=== PATIENT | female | born 1985 | race Caucasian/White ===

== ENCOUNTER 2021-07-07 12:36 | Emergency (ER) | payer OTHER, SELFPAY ==
--- NOTE | ~2021-07-07 | XR_ITS ---
EXAMINATION: XR shoulder RT min 2V INDICATION: Right shoulder pain TECHNIQUE: Four views of the right shoulder are submitted. COMPARISON: None FINDINGS: Normal alignment. No fracture. Glenohumeral and acromioclavicular joint spaces are normal. Soft tissues are unremarkable. IMPRESSION: 1. No acute osseous abnormality. Reviewed, dictated and finalized at location B.
[2021-07-07 12:42] VITALS: BP 133/82; PULSE 83; RESP 16; TEMP 37.2; O2SAT 98
--- NOTE | 2021-07-07 12:54 | ED.UPPEXIN ---
HPI - Extremity Injury (Upper) General Chief Complaint: Extremity Injury, Upper Stated Complaint: right shoulder down arm pain Time Seen by Provider: 07/07/21 12:54 Source: patient History of Present Illness HPI narrative: patient presents with right shoulder pain. patient denies any pain or discomfort. denies any injury. woke up with shoulder pain. has not taken anything for pain or discomfort. complaint: injury to: right and shoulder Other Extremity Injury: Right: shoulder Related Data Home Medications Medication Instructions Recorded Confirmed simvastatin 40 mg PO DAILY 07/07/21 07/07/21 Allergies Allergy/AdvReac Type Severity Reaction Status Date / Time azithromycin Allergy Unknown Nausea and Verified 12/09/19 18:48 Vomiting Review of Systems Review of Systems: All systems reviewed & are unremarkable except as noted in HPI and below ENT: Comments: CONSTITUTIONAL: Denies fever, chills, or sweats. EYES: Denies visual changes, redness, or discharge. ENT: Denies rhinorrhea, congestion, sore throat, or otalgia. CARDIOVASCULAR: Denies chest pain, palpitations, or edema. RESPIRATORY: Denies cough or dyspnea. GASTROINTESTINAL: Denies abdominal pain, nausea, vomiting, or diarrhea. GENITOURINARY: Denies dysuria or hematuria. SKIN: Denies rash or itching. MUSCULOSKELETAL: Denies back pain, joint pain, or myalgia. NEUROLOGIC: Denies headache, numbness, or weakness. PSYCHIATRIC: Denies anxiety or depression. [facility] Social History Social History Gender identity (if verbalized by the patient): Female Comments At time of signature, agree with nursing past medical, surgical, social and family history. There is no relevant family history pertinent to the presenting complaint Exam Narrative: GENERAL: Well-appearing, well-nourished, and in no acute distress. HEAD: Normocephalic, atraumatic. EYES: PERRLA and EOMI. ENT: Nares clear, no rhinorrhea or epistaxis. Mucous membranes moist. NECK: Supple. CHEST: Clear to auscultation. No respiratory distress. HEART: Regular rate and rhythm. No murmur heard. Normal peripheral pulses. ABDOMEN: Soft, nontender, nondistended, normal active bowel sounds. EXTREMITIES: Normal range of motion. No edema.NO SWELLING, BRUISING, SKIN CHANGES. SKIN INTACT. NORMAL RADIAL PULSE. NO DEFORMITY OF SHOULDER. NO CLAVICLE TENDERNESS. NORMAL UE SENSATION AND STRENGTH. ROM EVALUATED - CAN RAISE UE ABOVE SHOULDER, CAN ABDUCT, ADDUCT, EXTERNALLY ROTATE AND CAN INTERNALLY ROTATE AND RAISE THUMB UP THE SPINE. NO AC JOINT TENDERNESS, CAN CROSS ARM HORIZONTALLY AND PLACE HAND ON OPPOSITE SHOULDER, NO WINGING OF THE SCAPULA. SUPRASPINATUS APPEARS NORMAL WITH ARMS STRAIGHT OUT AT 30 DEGREES, THUMB DOWN , CAN ABDUCT AGAINST RESISTANCE. SKIN: Warm, dry, no rash. NEURO: No focal deficits. Alert and oriented x3. [place] Coma Scale Eye Opening: Spontaneous 4 [place] Coma Scale Motor: Obeys Commands 6 [place] Coma Scale Verbal: Oriented 5 [place] Coma Scale Total 15 Course Vital Signs Vital signs: Vital Signs Temperature 37.2 C 07/07/21 12:42 Pulse Rate 83 07/07/21 12:42 Respiratory Rate 16 07/07/21 12:42 Blood Pressure 133/82 07/07/21 12:42 Pulse Oximetry 98 07/07/21 12:42 Temperature 37.2 C 07/07/21 12:42 Pulse Rate 83 07/07/21 12:42 Respiratory Rate 16 07/07/21 12:42 Blood Pressure 133/82 07/07/21 12:42 Pulse Oximetry 98 07/07/21 12:42 Addressed elevated BP today. Today's blood pressure higher than recommended range. Discussed importance of follow -up with PCP and possible alf effects/cardiovascular events related to HTN. Currently patient denies headache, dizziness, vision changes, CP or shortness of breath. Pain much improved after Toradol injection patient ready to go home. DISCUSSED WITH PATIENT, X-RAY FINDINGS AND THAT X-RAYS WERE NEGATIVE FOR FRACTURE OR DISLOCATIONS. X-RAYS CANNOT RULE OUT TE
[2021-07-07] MEDS: KETOROLAC (*BKC) 60 MG/2 ML VIAL IM (13:05)
== END 2021-07-07 13:35 | disposition home or self-care (01) ==
PROVIDERS: Emergency Provider Nurse Practitioner Family; PCP Internal Medicine
DX: S40.211A Abrasion of right shoulder, initial encounter (principal); S40.011A Contusion of right shoulder, initial encounter; X58.XXXA Exposure to other specified factors, initial encounter; E78.00 Pure hypercholesterolemia, unspecified; F41.9 Anxiety disorder, unspecified
CPT/HCPCS: 73030; 96372; 99213; G0463; J1885

== ENCOUNTER 2021-07-12 09:59 | Emergency (ER) | payer OTHER, SELFPAY ==
--- NOTE | ~2021-07-12 | XR_ITS ---
EXAMINATION: [id number]_[id number] DATE: 07/12/2021 11:52 INDICATION: Right arm pain. TECHNIQUE: 4 views of cervical spine were obtained. COMPARISON: None. FINDINGS: There is 7 degrees levocurvature of cervicothoracic spine. There is kyphosis of cervical sp ine. Vertebral body heights are normal. There is mildly decreased disc height at C5-C6. No uncoverteb ral joint or facet joint osteoarthritis. No central canal stenosis or prevertebral soft tissue swelli ng. IMPRESSION: 1. Mild cervical spondylosis. Reviewed, dictated and finalized at location B.
[2021-07-12 10:02] VITALS: BP 149/102; PULSE 78; RESP 20; TEMP 36.4; O2SAT 97
--- NOTE | 2021-07-12 11:16 | ED.GENADULT ---
HPI - General Adult General Chief complaint: Extremity Problem,Nontraumatic <Arlene Stephens PA-C - Last Filed: 07/12/21 12:59> Stated complaint: rt arm pain <FLORINA Wilcox Last Filed: 07/12/21 12:59> Time Seen by Provider: 07/12/21 10:36 <FLORINA Wilcox Last Filed: 07/12/21 12:59> Source: patient <FLORINA Wilcox Last Filed: 07/12/21 12:59> Mode of arrival: ambulatory <FLORINA Wilcox Last Filed: 07/12/21 12:59> Limitations: no limitations <FLORINA Wilcox Last Filed: 07/12/21 12:59> History of Present Illness HPI narrative: Patient is tearful due to pain here for evaluation of pain in her right arm. She states that this started little more than a week ago, she has pain from her shoulder to her fingers with numbness in her thumb. She was seen and treated with ibuprofen, Flexeril, Medrol Dosepak and a sling with no relief she has had an x-ray of her shoulder that showed no pathology. 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 She denies any trauma recent or remote to her arm or neck. <Arlene Stephens PA-C - Last Filed: 07/12/21 12:59> Onset (ago): day(s) <FLORINA Wilcox Last Filed: 07/12/21 12:59> Radiation: non-radiation <FLORINA Wilcox Last Filed: 07/12/21 12:59> Severity: severe <FLORINA Wilcox Last Filed: 07/12/21 12:59> Quality: stabbing <FLORINA Wilcox Last Filed: 07/12/21 12:59> Pain Consistency: constant <FLORINA Wilcox Last Filed: 07/12/21 12:59> Relieving factors: none <Arlene Stephens PA-C - Last Filed: 07/12/21 12:59> Exacerbating factors: movement <Arlene Stephens PA-C - Last Filed: 07/12/21 12:59> Associated symptoms: denies other symptoms <Arlene Stephens PA-C - Last Filed: 07/12/21 12:59> Related Data Home medications: Home Medications Medication Instructions Recorded Confirmed simvastatin 40 mg PO DAILY 07/07/21 07/07/21 cyclobenzaprine mg 07/12/21 fluoxetine mg 07/12/21 hydrocodone-acetaminophen 07/12/21 <Arlene Stephens PA-C - Last Filed: 07/12/21 12:59> Allergies/adverse reactions: Allergies Allergy/AdvReac Type Severity Reaction Status Date / Time azithromycin Allergy Unknown Nausea and Verified 07/12/21 11:16 Vomiting <Arlene Stephens PA-C - Last Filed: 07/12/21 12:59> Review of Systems Review of Systems: All systems reviewed & are unremarkable except as noted in HPI and below <Arlene Stephens PA-C - Last Filed: 07/12/21 12:59> [facility] Social History Social History: Social History (Updated 07/12/21 @ 11:30 by Arlene Stephens PA-C) Smoking status: Never smoker Alcohol intake: never Substance use: never Occupation/Education: occupation 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[employer] Gender identity (if verbalized by the patient): Female <Arlene Stephens PA-C - Last Filed: 07/12/21 12:59> Exam Const: General: alert <Arlene Stephens PA-C - Last Filed: 07/12/21 12:59> Nutritional Appearance: obese <Arlene Stephens PA-C - Last Filed: 07/12/21 12:59> Orientation/consciousness: patient oriented x3 <Arlene Stephens PA-C - Last Filed: 07/12/21 12:59> Other: tearful <Arlene Stephens PA-C - Last Filed: 07/12/21 12:59> HENMT: Head: normal to inspection <Arlene Stephens PA-C - Last Filed: 07/12/21 12:59> Eyes: Pupils: Equal, round and reactive pupils present <Arlene Stephens PA-C - Last Filed: 07/12/21 12:59> Resp: Effort & Inspection: normal respiratory effort <FLORINA Wilcox Last Filed: 07/12/21 12:59> Auscultation: clear to auscultation bilaterally <Arlene Stephens PA-C - Last Filed: 07/12/21 12:59> Cardio: Rate: regular rate <FLORINA Wilcox Last Filed: 07/12/21 12:59> Rhythm: regular rhythm <FLORINA Wilcox Last Filed: 07/12/21 12:59> Skin: General skin exam: normal col
[2021-07-12] MEDS: traMADol HCL (*CRX) 50 MG TABLET PO (11:35)
[2021-07-12 13:07] VITALS: BP 138/84; PULSE 72; RESP 18; TEMP 36.8; O2SAT 100
== END 2021-07-12 13:05 | disposition home or self-care (01) ==
PROVIDERS: Emergency Provider General Practice; PCP Internal Medicine
DX: G56.01 Carpal tunnel syndrome, right upper limb (principal); M47.812 Spondylosis without myelopathy or radiculopathy, cervical region
CPT/HCPCS: 72040; 99283; A9270

== ENCOUNTER 2022-06-26 19:03 | Emergency (ER) | payer OTHER, SELFPAY ==
[2022-06-26 19:18] VITALS: BP 136/76; PULSE 89; RESP 16; TEMP 36.4; O2SAT 100
--- NOTE | 2022-06-26 19:29 | ED.GENADULT ---
HPI - General Adult General Chief complaint: Extremity Injury, Lower Stated complaint: Right hand injury Source: patient Mode of arrival: ambulatory Limitations: no limitations History of Present Illness HPI narrative: Patient presents for evaluation of pain in her right hand and wrist for the last week. She cannot identify any precipitating cause or injury. She is right-hand dominant. Pain is constant, without descriptive quality. She rates pain 8 out of 10 in severity. She has a history of carpal tunnel surgery in the past. She has a wrist splint that she has worn intermittently at home. She previously was taking meloxicam for neck pain but has not taken it in multiple days. She has also taken tramadol in the past. She is not taking any medication to assist with her symptoms at this time. Pain is worse with movement. No paresthesias. No additional complaints or concerns Related Data Home Medications Medication Instructions Recorded Confirmed simvastatin 40 mg tablet 40 mg PO DAILY 07/07/21 06/26/22 fluoxetine 20 mg capsule 20 mg PO DAILY 07/12/21 hydrocodone 5 mg-acetaminophen 325 07/12/21 mg tablet Allergies Allergy/AdvReac Type Severity Reaction Status Date / Time azithromycin Allergy Unknown Nausea and Verified 06/26/22 19:13 Vomiting Review of Systems Review of Systems: CONSTITUTIONAL: Denies fever, chills, or sweats. EYES: Denies visual changes, redness, or discharge. ENT: Denies rhinorrhea, congestion, sore throat, or otalgia. CARDIOVASCULAR: Denies chest pain, palpitations, or edema. RESPIRATORY: Denies cough or dyspnea. GASTROINTESTINAL: Denies abdominal pain, nausea, vomiting, or diarrhea. GENITOURINARY: Denies dysuria or hematuria. SKIN: Denies rash or itching. MUSCULOSKELETAL: Reports pain in the right hand and wrist. NEUROLOGIC: Denies headache, numbness, dizziness, or weakness. PSYCHIATRIC: Denies anxiety or depression. 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 HEAD: Normocephalic, atraumatic. EYES: PERRLA and EOMI. ENT: Nares clear, no rhinorrhea or epistaxis. Mucous membranes moist. Oropharynx without tonsillar hypertrophy exudate or other lesions. Bilateral TMs pearly maria nonbulging NECK: Supple. No adenopathy or masses. No carotid bruits or JVD CHEST: Clear to auscultation. No respiratory distress. No wheezes rales or rhonchi HEART: Regular rate and rhythm. No murmur heard. Normal peripheral pulses. ABDOMEN: Soft, nontender, nondistended, normal active bowel sounds. EXTREMITIES: Normal range of motion however movement of the right wrist provokes pain No edema. There is mild tenderness to the right wrist without crepitus or deformity. 5 out of 5 handgrip strength bilaterally SKIN: Warm, dry, no rash. NEURO: No focal deficits. Alert and oriented x3. PSYCH: Normal mood and affect. Course Course Emergency Course: This is a 37-year-old female who presented for evaluation of pain in the right hand and wrist. She has no precipitating injury warranting imaging. We do not have x-ray audiovisual technician available here. Exam seems consistent with tendinitis. She
== END 2022-06-26 19:32 | disposition home or self-care (01) ==
PROVIDERS: Emergency Provider Nurse Practitioner
DX: M77.8 Other enthesopathies, not elsewhere classified (principal)
CPT/HCPCS: 99212; G0463

== ENCOUNTER 2023-03-05 17:53 | Emergency (ER) | payer OTHER, SELFPAY ==
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
[2023-03-05 18:04] VITALS: BP 131/66; PULSE 87; RESP 16; TEMP 36.5; O2SAT 99
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
== END 2023-03-05 19:08 | disposition home or self-care (01) ==
PROVIDERS: Emergency Provider Nurse Practitioner Family; PCP Internal Medicine
DX: S93.601A Unspecified sprain of right foot, initial encounter (principal); V86.09XA Driver of other special all-terrain or other off-road motor vehicle injured in traffic accident, initial encounter
CPT/HCPCS: 73630; 99213; G0463

== ENCOUNTER 2023-03-17 18:38 | Emergency (ER) | payer OTHER, SELFPAY ==
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
--- NOTE | 2023-03-17 18:45 | ED.UPPEXIN ---
HPI - Extremity Injury (Upper) General Chief Complaint: Extremity Injury, Upper Stated Complaint: WC right hand injury Time Seen by Provider: 03/17/23 18:46 Source: patient and RN notes reviewed History of Present Illness HPI narrative: Patient is a 37-year-old female who presents to urgent care with complaints of right hand swelling and pain. Patient states that she was trying to close a latch on a machine at work today, at [employer] and felt a pop in the right hand. Patient has been using ice and ibuprofen. States that happened around 9:00 a.m. this morning. No other acute complaints. Patient is right-hand dominant. No acute distress noted. Patient aware of the plan of care. Some parts of this dictation were generated by voice recognition software and may contain typographical and/or grammatical inaccuracies. Related Data Home Medications Medication Instructions Recorded Confirmed simvastatin 40 mg tablet 40 mg PO DAILY 07/07/21 06/26/22 fluoxetine 20 mg capsule 20 mg PO DAILY 07/12/21 ropinirole 1 mg tablet mg 03/05/23 tizanidine 4 mg tablet mg 03/05/23 Ozempic 03/17/23 Allergies Allergy/AdvReac Type Severity Reaction Status Date / Time azithromycin Allergy Unknown Nausea and Verified 06/26/22 19:13 Vomiting Review of Systems Review of Systems: CONSTITUTIONAL: Denies fever, chills, or sweats. EYES: Denies visual changes, redness, or discharge. ENT: Denies rhinorrhea, congestion, sore throat, or otalgia. CARDIOVASCULAR: Denies chest pain, palpitations, or edema. RESPIRATORY: Denies cough or dyspnea. GASTROINTESTINAL: Denies abdominal pain, nausea, vomiting, or diarrhea. GENITOURINARY: Denies dysuria or hematuria. SKIN: Denies rash or itching. MUSCULOSKELETAL: Reports of right hand pain and swelling NEUROLOGIC: Denies headache, numbness, or weakness. All other systems reviewed are negative, except as documented in HPI. 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 There is no relevant family history pertinent to the patient complaint. Exam Narrative: GENERAL: This is a well-nourished, well-developed patient, in no apparent distress. HEAD: normocephalic, atraumatic. EYES: PERRL. Sclera clear/white. Vision is grossly intact. EARS: External ears normal NOSE: External nose normal with no obvious nasal discharge, nares without redness, no rhinorrhea. THROAT: Mucous membranes moist, posterior pharynx clear. NECK: Neck supple, SKIN: warm, intact with no suspicious lesions or rash, good texture and turgor. NEURO: awake, alert, and oriented to person, place and time. There were no obvious focal neurologic abnormalities. EXTREMITIES: Mild edema noted to the dorsal aspect of the right hand with mild to moderate tenderness. No erythema or ecchymosis noted. Range of motion limited right upper extremity due to pain. Positive strong right radial pulse with capillary refill less than 2 seconds. Course Course Level of Care: Express Care Visit Vital Signs Vital signs: Vital Signs Temperature 97.6 F
[2023-03-17 18:46] VITALS: BP 151/94; PULSE 96; RESP 20; TEMP 36.4; O2SAT 99
== END 2023-03-17 19:16 | disposition home or self-care (01) ==
PROVIDERS: Emergency Provider Nurse Practitioner Family; PCP Internal Medicine
DX: M79.641 Pain in right hand (principal)
CPT/HCPCS: 73130; 99213; G0463

== ENCOUNTER 2023-07-12 16:47 | Emergency (ER) | payer OTHER, SELFPAY ==
[2023-07-12 16:50] VITALS: BP 114/70; PULSE 98; RESP 14; TEMP 36.9; O2SAT 98
[2023-07-12 17:03] VITALS: BP 114/70; PULSE 98; RESP 14; TEMP 36.9; O2SAT 98
--- NOTE | 2023-07-12 17:15 | ED.EAR ---
HPI - Ear Problem General Chief complaint: Ear Stated complaint: Right ear Time Seen by Provider: 07/12/23 17:14 Source: patient and RN notes reviewed Mode of arrival: ambulatory Limitations: no limitations History of Present Illness HPI Narrative: 38-year-old female presents concern for right ear pain and pressure. She reports symptoms started about 3 days ago. Reports she has also had nasal congestion and rhinorrhea. She denies sore throat, cough, fever, aches, chills, sweats. Denies drainage from the ear. She has not taken any medications for her symptoms MD Complaint: ear pain Related Data Home Medications Medication Instructions Recorded Confirmed simvastatin 40 mg tablet 40 mg PO DAILY 07/07/21 07/12/23 fluoxetine 20 mg capsule 20 mg PO DAILY 07/12/21 07/12/23 ropinirole 1 mg tablet 1 mg PO DIRECTED 03/05/23 07/12/23 tizanidine 4 mg tablet 4 mg PO DIRECTED 03/05/23 07/12/23 ascorbic acid (vitamin C) 500 mg 500 mg PO DAILY 07/12/23 07/12/23 capsule biotin 1,000 mcg chewable tablet 1,000 mcg PO DAILY 07/12/23 07/12/23 cholecalciferol (vitamin D3) 25 25 mcg PO DAILY 07/12/23 07/12/23 mcg (1,000 unit) capsule (Vitamin D3) dulaglutide 0.75 mg/0.5 mL 0.75 mg subcut WEEKLY 07/12/23 07/12/23 subcutaneous pen injector (Trulicity) vitamin B12 1,000 mcg-folic acid 1,000 tablet sublingual DAILY 07/12/23 07/12/23 400 mcg sublingual tablet Allergies Allergy/AdvReac Type Severity Reaction Status Date / Time azithromycin Allergy Unknown Nausea and Verified 07/12/23 17:00 Vomiting Review of Systems Review of Systems: CONSTITUTIONAL: Denies malaise, chills, sweats, or fever. EYES: Denies visual changes, redness, or discharge. ENT: Reports rhinorrhea, congestion. Denies sinus pain, and sore throat. Reports right ear pain CARDIOVASCULAR: Denies chest pain, palpitations, or edema. RESPIRATORY: Denies cough. Denies dyspnea. GASTROINTESTINAL: Denies abdominal pain, nausea, vomiting, diarrhea SKIN: Denies rash or itching. MUSCULOSKELETAL: Denies myalgia. NEUROLOGIC: Denies headache. 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 There is no relevant family history pertinent to the presenting complaint Exam Narrative: GENERAL: Well-appearing, well-nourished, and in no acute distress. HEAD: Normocephalic EYES: PERRLA, conjunctivae clear ENT: Nares clear, turbinates edematous, clear discharge. Mucous membranes moist. TM pearly amria with dull light reflex bilaterally; no tragal tenderness. Oropharynx not erythematous without lesions. Tonsils not enlarged and without exudate, no drooling, no hoarseness, no trismus, uvula midline. NECK: Supple. No lymphadenopathy CHEST: Clear to auscultation, breath sounds equal. No wheezing, rhonchi, rales, or stridor. No respiratory distress, speaks in full sentences. HEART: Regular rate and rhythm. No murmur heard. SKIN: Warm, dry, no rash. NEURO: Alert and oriented x3. PSYCH: Normal mood and affect Course Course Lisa
== END 2023-07-12 17:25 | disposition home or self-care (01) ==
PROVIDERS: Emergency Provider Nurse Practitioner; PCP Internal Medicine
DX: J06.9 Acute upper respiratory infection, unspecified (principal)
CPT/HCPCS: 99213; G0463

== ENCOUNTER 2024-01-05 08:26 | Emergency (ER) | payer OTHER, SELFPAY ==
[2024-01-05 08:41] VITALS: BP 121/74; PULSE 81; RESP 16; TEMP 36.2; O2SAT 98
--- NOTE | 2024-01-05 09:18 | ED.GENADULT ---
HPI - General Adult General Chief complaint: Upper Respiratory Infection Stated complaint: throat Source: patient Mode of arrival: ambulatory Limitations: no limitations History of Present Illness HPI narrative: Patient presents for evaluation of sore throat since yesterday. She has experience a mild productive cough of clear/white sputum and reports a hoarse voice. Denies shortness of breath, fever, chills, nausea, vomiting, diarrhea, shortness of breath. No recent sick contacts to her knowledge. She took ibuprofen for her symptoms. Related Data Home Medications Medication Instructions Recorded Confirmed simvastatin 40 mg tablet 40 mg PO DAILY 07/07/21 07/12/23 fluoxetine 20 mg capsule 20 mg PO DAILY 07/12/21 07/12/23 ropinirole 1 mg tablet 1 mg PO DIRECTED 03/05/23 07/12/23 ascorbic acid (vitamin C) 500 mg 500 mg PO DAILY 07/12/23 07/12/23 capsule biotin 1,000 mcg chewable tablet 1,000 mcg PO DAILY 07/12/23 07/12/23 cholecalciferol (vitamin D3) 25 25 mcg PO DAILY 07/12/23 07/12/23 mcg (1,000 unit) capsule (Vitamin D3) vitamin B12 1,000 mcg-folic acid 1,000 tablet sublingual DAILY 07/12/23 07/12/23 400 mcg sublingual tablet Allergies Allergy/AdvReac Type Severity Reaction Status Date / Time azithromycin Allergy Unknown Nausea and Verified 07/12/23 17:00 Vomiting Review of Systems Review of Systems: CONSTITUTIONAL: Denies fever, chills, or sweats. EYES: Denies visual changes, redness, or discharge. ENT: Reports hoarse voice and sore throat. Denies rhinorrhea, congestion, or otalgia. CARDIOVASCULAR: Denies chest pain, palpitations, or edema. RESPIRATORY: Reports occasional productive cough of clear/white sputum. Denies SOB GASTROINTESTINAL: Denies abdominal pain, nausea, vomiting, or diarrhea. GENITOURINARY: Denies dysuria or hematuria. SKIN: Denies rash or itching. MUSCULOSKELETAL: Denies back pain, joint pain, or myalgia. NEUROLOGIC: Denies headache, numbness, dizziness, or weakness. PSYCHIATRIC: Denies anxiety or depression. 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 HEAD: Normocephalic, atraumatic. EYES: PERRLA and EOMI. ENT: Nares clear, no rhinorrhea or epistaxis. Mucous membranes moist. Oropharynx without tonsillar hypertrophy exudate or other lesions. Bilateral TMs pearly maria nonbulging NECK: Supple. No adenopathy or masses. No carotid bruits or JVD CHEST: Clear to auscultation. No respiratory distress. No wheezes rales or rhonchi HEART: Regular rate and rhythm. No murmur heard. Normal peripheral pulses. ABDOMEN: Soft, nontender, nondistended, normal active bowel sounds. EXTREMITIES: Normal range of motion. No edema. SKIN: Warm, dry, no rash. NEURO: No focal deficits. Alert and oriented x3. PSYCH: Normal mood and affect. Course Course Emergency Course: This is a 38-year-old female who presented for evaluation of sore throat. Rapid strep negative. Exam is consistent with viral pharyngitis. Recommend Cepacol lozenges. Increase hydration. Follow up with primary provider. Go to the ER for worsening sympt
== END 2024-01-05 09:13 | disposition home or self-care (01) ==
PROVIDERS: Emergency Provider Nurse Practitioner; PCP Internal Medicine
DX: J02.9 Acute pharyngitis, unspecified (principal)
CPT/HCPCS: 87081; 87880; 99213; G0463

== ENCOUNTER 2025-02-26 08:07 | Outpatient (CLI) | payer OTHER, SELFPAY ==
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
--- OUTSIDE RECORDS SUMMARY | 2025-02-26 08:10 | XMS_ITS | Clinical Summary ---
Author Organization [facility] Address [address] [place] [address] Phone Care Team Providers Care Staff Antisubmarine Officer Name Role Phone RODRIGO YANG, JAN Hughes Unavailable [phone] RAY YANG, CHELSEA Mccloud Unavailable [phone] Reason for Visit and Chief Complaint The Chief Complaint is: WWE. Vaginal itching for a couple weeks.. No new sexual partners Problems Includes: Problems addressed during this encounter and other active Problems Current Visit Onset Date Resolved Date Provider Janayo n Status Hyperlipidemia 03/09/2019 ARGENIS DIALLO MAN [facility] Active Last Documented On 9 8:02AM ; [facility] Reported Previous Std 09/10/2013 Unknown ELISE JANE MD Resolved Last Documented On 05/17/2014 10:24AM ; [facility] Note: was Closed. Plan of Treatment - Clinical summary provided to patient - Last Documented On 05/21/2023 3:22PM ; [facility] Instructions to patient Instructions for patient : B reast Self Exam discussed Last Documented On 3 2:27PM ; [facility] Instructions for patient : K eep the area around the vulva dry. Allow the area to have exposure to air. Avoid irritants such as fabric softeners and perfumed soaps.~ Last Documented On 3 3:22PM ; [facility] Lose weight Last Documented On 3 2:28PM ; [facility] Advised d/c scented bath pro ducts Last Documented On 3 3:22PM ; [facility] Safe sex counseling Last Documented On 3 2:28PM ; [facility] Education and Decision Aids were provided during visit for: Patient Education: Daily piedad cium and vitamin D Last Documented On 3 2:27PM ; [facility] Patient Education: weight be aring exercise Last Documented On 3 2:27PM ; [facility] Candidiasis Vulvovaginitis I nformation Sheet Given Last Documented On 3 3:22PM ; [facility] Assessments Includes: Assessments from this encounter Findings - NORMAL FEMALE EXAM [Z01.419 - Encounter for gynecological examination (general) (routine) without abnormal findings] - Last Documented On 05/21/2023 3:22PM ; [facility] - Hyperlipidemia [E78.2 - Mixed hyperlipidemia] - Last Documented On 05/21/2023 3:22PM ; [facility] Instructions Includes: Instructions from this encounter Instructions to patient Instructions for patient : B reast Self Exam discussed Last Documented On 3 2:27PM ; [facility] Instructions for patient : K eep the area around the vulva dry. Allow the area to have exposure to air. Avoid irritants such as fabric softeners and perfumed soaps.~ Last Documented On 3 3:22PM ; [facility] Lose weight Last Documented On 3 2:28PM ; [facility] Advised d/c scented bath pro ducts Last Documented On 3 3:22PM ; [facility] Safe sex counseling Last Documented On 3 2:28PM ; [facility] Education and Decision Aids were provided during visit for: Patient Education: Daily piedad cium and vitamin D Last Documented On 3 2:27PM ; [facility] Patient Education: weight be aring exercise Last Documented On 3 2:27PM ; [facility] Candidiasis Vulvovaginitis I nformation Sheet Given Last Documented On 3 3:22PM ; [facility] Medical Equipment - Implanted Devices Includes: Current Devices No Medical Equipment Recorded Medications Includes: Medications discussed during this encounter and other current Medications Discontinued / Stopped on this date on 03/09/2019 FLUoxetine HCl 20MG Oral Capsule, conventional Provider: Diagnosis: Last Documented On 05/21/2023 3:06PM By Marie GONZALEZ ; [facility] New / Renewed during this visit ARGENIS MCCORMICK on 05/21/2023 Diflucan 150 MG Oral Tablet Provider: ARGENIS Hughes 30 day supply: 2 tablet, 0 refills Diagnosis: as directed - one po x 1 dos e and may rpt. in 3 days if needed Pharmacy: [address], [address] - Last Documented On 3:37PM By ARGENIS MCCORMICK ; [facility] Current Medications (continue as prescribed) Vitamin B12 500 MCG Oral Tablet 05/21/2023 Provider: Diagnosis: Last Documented On 05/21/2023 3:07PM By Marie GONZALEZ ; [facility] Biotin 10 MG Oral Capsule 05/21/2023 Provider: Diagnosis: Last Documented On 05/21/2023 3:07PM By Marie GONZALEZ ; [facility] QC Vitamin D3 25 MCG (1000 UT) Oral Capsule 05/21/2023 Provider: Diagnosis: Last Documented On 05/21/2023 3:06PM By Marie GONZALEZ ; [facility] tiZANidine HCl 4 MG Oral Tablet 05/03/2023 Provider: REGGIE WHITTAKER Diagnosis: Last Documented On 05/21/2023 3:05PM By Marie GONZALEZ ; [facility] rOPINIRole HCl 1 MG Oral Tablet 04/09/2023 Provider: Diagnosis: Last Documented On 05/21/2023 3:05PM By Marie GONZALEZ ; [facility] FLUoxetine HCl 20 MG Oral Capsule 02/12/2023 Provide r: REGGIE WHITTAKER Diagnosis: Last Documented On 05/21/2023 3:05PM By Marie GONZALEZ ; [facility] Mirena (52 MG) 20 MCG/24HR Intrauterine Intraute rine device 01/18/2020 Provider: Diagnosis: Last Documented On 12:58PM By ARGENIS MCCORMICK ; [facility] Simvastatin 20MG Oral Tablet 03/09/2019 Provider: Diagnosis: Last Documented On 03/09/2019 8:09AM By SHAKEEL GONZALEZ ; [facility] Past Medications on file CeleXA 20 MG OR TABS 09/15/2013 - 10/15/2013 Provider: Diagnosis: [facility] Last Documented On 09/15/2013 11:04AM By WESLEY SORENSEN ; [facility] Diflucan 150 MG OR TABS 07/03/2013 - 08/02/2013 Provider: ARGENIS MCCORMICK Diagnosis: CANDIDAL VULVOVA GINITIS take one dose po x 1 and repeat in 3 days Last Documented On 3 1:11PM By ARGENIS MCCORMICK ; [facility] 19 OR TABS 03/05/2013 - 02/28/2014 Provider: ARGENIS MCCORMICK Diagnosis: Last Documented On 3 9:09AM By ARGENIS MCCORMICK ; [facility] Zithromax 1 GM OR PACK 08/28/2012 - 09/27/2012 Provide r: ARGENIS MCCORMICK Diagnosis: 1 gm dose po x 1 - no liquid dosing please! Last Documented On 2 2:31PM By ARGENIS MCCORMICK ; [facility] Flagyl 500 MG OR TABS 08/28/2012 - 09/04/2012 Provider : ARGENIS MCCORMICK Diagnosis: Last Documented On 2 2:30PM By ARGENIS MCCORMICK ; [facility] Bactrim DS 800-160 MG OR TABS 03/27/2012 - 04/03/2012 Provider: ARGENIS MCCORMICK Diagnosis: Last Documented On 2 2:14PM By ARGENIS MCCORMICK ; [facility] Ibuprofen 800 MG OR TABS 07/23/2011 - 09/21/2011 Provi ankita: ARGENIS MCCORMICK Diagnosis: Last Documented On 1 1:05PM By ARGENIS MCCORMICK ; [facility] GNP Vitamins OR TABS 12/14/2009 - 12/09/2010 Provider: ARGENIS MCCORMICK Diagnosis: Last Documented On 0 2:25PM By ARGENIS HOWARD ; [facility] CitraNatal 90 DHA 90-1 & 250 MG OR MISC 12/12/2009 - 12/07/2010 Provider: ARGENIS BERRIOS NP-BC Diagnosis: Last Documented On 0 2:12PM By ARGENIS DIALLO LAURIE-BC ; [facility] Medications Administered Includes: Administered Medications from this encounter No Administered Medications Recorded Vital Signs Includes: Vital Signs from this encounter Vital Name 05/21/2023 03:09P Blood Pressure Sitting L 118/80 BP Cuff Size Large Temp-Temporal 98.3 Height (in) 65 Weight (lb) 261 Body Mass Index 43.4 Body Surface Area 2.2 Last Documented: On 05/21/2023 3:10PM ; [facility] Results Includes: Results discussed during this encounter No Results Recorded For Specified Dates History of Present Illness Includes: History of Present Illness from this encounter YAYA FONG is a 38 year old female. - Allergy list reviewed - Medication list reviewed - Primary Care Provider: Dr. Xiao - Age at menarche 13 - Date of last menstruation N/a - Abnormal menstrual flow heavy flow heavy menstrual flow - Menstrual symptoms Mild menstrual cramping Social History Description Last Updated Alcohol use occ 05/21/2023 Last Documented On 3 3:22PM ; [facility] Tobacco non-user 05/21/2023 Last Documented On 3 3:22PM ; [facility] control is being practiced Mirena 05/21/2023 Last Documented On 3 3:22PM ; [facility] Alcohol 05/21/2023 Last Documented On 3 3:22PM ; [facility] Amount of alcohol per day: Once while Last Documented On 3 3:22PM ; [facility] Does not have anal sex 05/21/2023 Last Documented On 3 3:22PM ; [facility] Has not used injectable drugs 05/21/2023 Last Documented On 3 3:22PM ; [facility] Has sex with males only 05/21/2023 Last Documented On 3 3:22PM ; [facility] Never a smoker 05/21/2023 Last Documented On 3 3:22PM ; [facility] No drug use by a sexual partner 05/21/20 Last Documented On 3 3:22PM ; [facility] No sexual history reported 05/21/2023 Last Documented On 3 3:22PM ; [facility] Not using drugs 05/21/2023 Last Documented On 3 2:27PM ; [facility] Not using drugs 05/21/2023 Last Documented On 3 3:22PM ; [facility] Partner has not had a STD in the past ye ar 05/21/2023 Last Documented On 3 3:22PM ; [facility] Patient does not report having sex when she didn't want to 05/21/2023 Last Documented On 3 3:22PM ; [facility] Patient has not had sex unde r the influence of alcohol or drugs in the last year 05/21/2023 Last Documented On 3 3:22PM ; [facility] Sexual partner has not had o ther partners while in relationship with patient 05/21/2023 Last Documented On 3 3:22PM ; [facility] Sexual partner has not had sex with pros titutes 05/21/2023 Last Documented On 3 3:22PM ; [facility] Sexually active with partners in the las t year 05/21/2023 Last Documented On 3 3:22PM ; [facility] Non-smoker 03/17/2020 Last Documented On 3 2:27PM ; [facility] Smoking Status Unknown Procedures and Surgical History Includes: Procedures from this encounter Procedures Code Diagnosis Performing Provider Service L ocation Service Date low fat diet Last Documented On 3 2:28PM ; [facility] tubal ligation 92840 Last Documented On 3 2:56PM ; [facility] use of tobacco assessment performed 1000F Last Documented On 3 2:57PM ; [facility] review of medications documented 1160F Last Documented On 3 2:57PM ; [facility] history of cervical Pap smear 03/17/2020 [id number] Last Documented On 3 2:57PM ; [facility] Cervical Pap Smear performed Q0091 Last Documented On 3 2:28PM ; [facility] Surgical History Last Updated Surgical / procedural histor y 06-09-10 and 2013 ~Right Carpal Tunnel- 12/11/21 05/21/2023 Last Documented On 3 3:22PM ; [facility] History of tubal ligation 02/15/2015 Last Documented On 3 2:27PM ; [facility] Medical History Includes: Medical History addressed during this encounter Description Last Updated LMP: IUD 05/21/2023 Last Documented On 3 3:22PM ; [facility] Last pap smear date 03/17/2020 05/21/2023 Last Documented On 3 3:22PM ; [facility] # 1 Delivery date: 06/09/2010 05/21/2023 Last Documented On 3 3:22PM ; [facility] # 1 Hours in labor 13 05/21/2023 Last Documented On 3 3:22PM ; [facility] # 1 type delivery: C-sec 05/21/2023 Last Documented On 3 3:22PM ; [facility] # 1 Weeks: 2 weeks early 05/21/2023 Last Documented On 3 3:22PM ; [facility] # 1 Weight 8pd 10oz 05/21/2023 Last Documented On 3 3:22PM ; [facility] # 2 type delivery: Plan c-sec 05/21/2023 Last Documented On 3 3:22PM ; [facility] # 2 Delivery date: 03/11/2014 05/21/2023 Last Documented On 3 3:22PM ; [facility] # 2 Hours in labor: Plan c-sec 3 Last Documented On 3 3:22PM ; [facility] # 2 Weeks: 1 05/21/2023 Last Documented On 3 3:22PM ; [facility] # 2 Weight: 8pds 11oz 05/21/2023 Last Documented On 3 3:22PM ; [facility] An HIV test was not performed 05/21/2023 Last Documented On 3 3:22PM ; [facility] Diabetes 05/21/2023 Last Documented On 3 3:22PM ; [facility] Elective (s) 0 05/21/2023 Last Documented On 3 3:22PM ; [facility] No. of miscarriages: 0 05/21/2023 Last Documented On 3 3:22PM ; [facility] No. of Pregnancies: 2 05/21/2023 Last Documented On 3 3:22PM ; [facility] Previous live (s) 2 05/21/2023 Last Documented On 3 3:22PM ; [facility] Previous premature delivery(s) 0 023 Last Documented On 3 3:22PM ; [facility] Previous STD 05/21/2023 Last Documented On 3 3:22PM ; [facility] Sex of Child # 1: Fema 05/21/2023 Last Documented On 3 3:22PM ; [facility] Sex of Child # 2: Fem 05/21/2023 Last Documented On 3 3:22PM ; [facility] Sexually active 03/17/2020 Last Documented On 3 2:27PM ; [facility] Contraception: mirena 2-24-20 03/17/2020 Last Documented On 3 2:27PM ; [facility] History of hyperlipidemia 03/09/2019 Last Documented On 3 2:27PM ; [facility] 2 02/15/2015 Last Documented On 3 2:27PM ; [facility] Para 2 02/15/2015 Last Documented On 3 2:27PM ; [facility] Family History Includes: Family History addressed during this encounter Description Last Updated Maternal history of colon cancer Aunt Last Documented On 3 3:22PM ; [facility] Maternal history of diabetes mellitus Mo ther, Grandma, and Aunts 05/21/2023 Last Documented On 3 3:22PM ; [facility] Maternal history of psychiatric disorder s 05/21/2023 Last Documented On 3 3:22PM ; [facility] Paternal history of cancer Father- Liver cancer 05/21/2023 Last Documented On 3 3:22PM ; [facility] Family history of diabetes mellitus mate rnal grandma 02/15/2015 Last Documented On 3 2:27PM ; [facility] Family history [use for free text] 04/09 Last Documented On 3 2:27PM ; [facility] Family history of heart disease father 0 12/31/2012 Last Documented On 3 2:27PM ; [facility] Family history of hypertension fathers s [place] 12/31/2012 Last Documented On 3 2:27PM ; [facility] Family history of malignant neoplasm of the large intestine MAT AUNT 08/28/2012 Last Documented On 3 2:27PM ; [facility] Review of Systems Includes: Review of Systems from this encounter Gastrointestinal: No pelvic pain. Genitourinary: No menorrhagia. No dysmenorrhea and no bleeding between periods. No vaginal discharge. Mental Status Includes: Mental Status from this encounter No Mental Status Recorded Functional Status Includes: Functional Status from this encounter No Functional Status Recorded Physical Exam Includes: Physical Exam from this encounter Allergies Includes: Active Allergies Substance Type Reaction Onset Date Resolved Date Statu s Azithromycin Dihydrate Allergy 09/15/2012 Active Last Documented On 3 3:08PM ; [facility] Encounters Encounter Provider Location Date Check-In Time Check-Out Time Diagnosis WELL WOMAN - NEW PATIENT ARGENIS DIALLO MAN [facility] 05/21/20 23 2:54PM 3:23PM Normal Female Exam,Hyperlip idemia Insurance Includes: Active Insurance Policies Plan Name Member ID Group # Subscriber Relationship Effect shabbir Dates 1 - [facility] [id number] LILIAN FONG Self Clinical Notes Includes: Clinical Notes from this encounter * Progress note Date Encounter Last Documented by 05/21/2023 WELL WOMAN - NEW PATIENT Last do cumented on 05/21/2023; 3:22 PM, ARGENIS DIALLO LAURIE-; [facility] Active Problems & Conditions - Hyperlipidemia Chief Complaint The Chief Complaint is: WWE. Vaginal itching for a couple weeks.. No new sexual partners. History of Present Illness LILIAN FONG is a 38 year old female. - Allergy list reviewed - Medication list reviewed - Primary Care Provider: Dr. Xiao - Age at menarche 13 - Date of last menstruation N/a - Abnormal menstrual flow heavy flow heavy menstrual flow - Menstrual symptoms Mild menstrual cramping Current Medication - Biotin 10 MG Oral Capsule 0 days, 0 refills - FLUoxetine HCl 20 MG Oral Capsule 30 days, 0 refills - Mirena (52 MG) 20 MCG/24HR Intrauterine Intrauterine device 0 days, 0 refills - QC Vitamin D3 25 MCG (1000 UT) Oral Capsule 0 days, 0 refills - rOPINIRole HCl 1 MG Oral Tablet 90 days, 0 refills - Simvastatin 20MG Oral Tablet 20 MG 0 days, 0 refills - tiZANidine HCl 4 MG Oral Tablet 30 days, 0 refills - Vitamin B12 500 MCG Oral Tablet 0 days, 0 refills Past Medical/Surgical History Reported: LMP: IUD, Last pap smear date 03/17/2020, and Contraception: mirena 2-24-20. Medical: Previous STD and Diabetes. Surgical / Procedural: Surgical / procedural history 06-09-10 and 2013 Right Carpal Tunnel- 12/11/21. Tests: An HIV test was not performed. : 2, para 2 including premature delivery(s) 0, having live (s) 2, aborta including elective (s) 0, No. of Pregnancies: 2, # 1 Delivery date: 06/09/2010, # 2 Delivery date: 03/11/2014, # 1 type delivery: C-sec, # 2 type delivery: Plan c-sec, # 1 Hours in labor 13, # 2 Hours in labor: Plan c-sec, No. of miscarriages: 0, # 1 Weight 8pd 10oz, # 2 Weight: 8pds 11oz, # 1 Weeks: 2 weeks early, # 2 Weeks: 1, Sex of Child # 1: Fema, and Sex of Child # 2: Fem. Sexual: Sexually active. Diagnoses: Hyperlipidemia Surgical: - Tubal ligation Social History Behavioral: Amount of alcohol per day: Once while. Tobacco use: Never used tobacco never a smoker and non-smoker. Alcohol: Alcohol alcohol use occ. Drug Use: Not using drugs, not using drugs, no drug use by a sexual partner, and has not used injectable drugs. Sexual: Sexually active with partners in the last year and has sex with males only. Partner has not had a STD in the past year, sexual partner has not had other partners while in relationship with patient, and sexual partner has not had sex with prostitutes. Patient has not had sex under the influence of alcohol or drugs in the last year, patient does not report having sex when she didn't want to, and no sexual history reported. Does not have anal sex and control is being practiced Mirena. Allergies - Azithromycin Dihydrate Family History Heart disease father family history [use for free text] Systemic hypertension fathers side Diabetes mellitus maternal grandma Malignant neoplasm of large intestine MAT AUNT Paternal: Cancer Father- Liver cancer Maternal: Diabetes mellitus Mother, Grandma, and Aunts Psychiatric disorders Colon cancer Aunt Review Of Systems Gastrointestinal: No pelvic pain. Genitourinary: No menorrhagia. No dysmenorrhea and no bleeding between periods. No vaginal discharge. Physical Findings - Vitals taken 05/21/2023 03:09 pm BP-Sitting L 118/80 mmHg BP Cuff Size Large Temp-Temporal 98.3 F Height 65 in Weight 261 lbs Body Mass Index 43.4 kg/m2 Body Surface Area 2.2 m2 Standard Measurements: - Patient was observed to be obese. General Appearance: - Well developed. - Well nourished. - In no acute distress. Neck: Thyroid: - Showed no abnormalities. Lymph Nodes: - Supraclavicular lymph nodes were not enlarged. - Axillary lymph nodes were not enlarged. Breasts: Right Breast: - Nipple was normal. - No abnormal secretion. - No mass was found. - No tenderness. Left Breast: - Nipple was normal. - No abnormal secretion. - No mass was found. - No tenderness. Lungs: - Clear to auscultation. Cardiovascular: Heart Rate And Rhythm: - Normal. Murmurs: - No murmurs were heard. Back: - No right costovertebral angle tenderness. - No left costovertebral angle tenderness. Abdomen: Palpation: - Abdominal non-tender. - No mass was palpated in the abdomen. Liver: - Not enlarged. Spleen: - Not enlarged. Urinary System: Bladder: - Normal. - Not distended. - Did not have a mass. - Incontinence was not demonstrated. Genitalia: External: - Genitalia showed no abnormalities. Pelvic: - No ovarian mass. Vagina: - A vaginal discharge was observed thick, yellow. - No cystocele was observed. - No rectocele was observed. Cervix: - Showed no lesion Mirena IUD strings easily viewed and palpable in place. - Did not demonstrate pain elicited by motion. Uterus: - Not enlarged. - Not tender. Uterine Adnexae: - Uterine adnexa was not tender. Rectovaginal: - Tissue was normal. Psychiatric: Appearance: - Grooming was normal. Tests Pathology: Cytology: Cervical Pap Smear performed. Assessment - NORMAL FEMALE EXAM [Z01.419 - Encounter for gynecological examination (general) (routine) without abnormal findings] - Hyperlipidemia [E78.2 - Mixed hyperlipidemia] Previous Tests Pathology: Cytology: Cervical Pap smear 03/17/2020. Therapy - Low fat diet. - Tubal ligation. Counseling/Education - Instructions for patient: Breast Self Exam discussed - Instructions for patient: Keep the area around the vulva dry. Allow the area to have exposure to air. Avoid irritants such as fabric softeners and perfumed soaps. - Advised d/c scented bath products - Safe sex counseling - Lose weight - Candidiasis Vulvovaginitis Information Sheet Given - Patient Education: Daily calcium and vitamin D - Patient Education: weight bearing exercise Plan StartCited - Encntr for therapist exam (general) (routine) w/o abn findings Lab: PAP SMEAR & HPV ([facility] # [id number]) EndCited StartCited - Other Follow-up 1 year/prn Diflucan 150 MG tablet as directed - one po x 1 dose and may rpt. in 3 days if needed, 30 days, 0 refills EndCited - Clinical summary provided to patient Practice Management Preventive medicine new patient evaluation adult 18-39 years; Use of tobacco assessment performed Review of medications documented. Care Team - CHELSEA BELL MD Health Reminders - Assess BMI satisfied 05/21/2023. - Assess Tobacco Use satisfied 05/21/2023.
--- OUTSIDE RECORDS SUMMARY | 2025-02-26 08:10 | XMS_ITS | Data Portability ---
Author Organization BRYNN FLORIDALMACecilia Orozco Address [address] [place] [address] Care Team Providers Care Capacitor Tester Name Role Phone GEOVANNY WHITTAKER Primary Care Provider [phone] Assessment No assessment recorded. Plan of Treatment Reminders Order Date Submit Date Provider Last Modified By Organization Details Last Modified Time Details Appointments None recorded . Lab lipid panel, serum 2023 024 [facility], [address] [place] [address], [id number], 5 08:26:17 CMP, serum or plasma 2023 024 [facility], [address] [place] [address], [address], 5 08:26:17 HbA1c (hemoglo bin A1c), blood 2023 024 [facility], [address] [place] [address], [address], 4 03:09:27 lipid panel, serum 2023 024 [facility], [address] [facility] [address], [address], 4 03:09:26 CMP, serum or plasma 2023 024 [facility], [address] [facility] [address], [address], 4 03:09:26 CBC 2023 024 [facility], [address] [facility] [address], [place], [address], 4 03:09:28 TSH, ultra-se nsitive, serum 2023 024 [facility], [address] [facility] [address], [place], [address], 4 03:09:28 Referral None recorded . Procedures None recorded . Surgeries None recorded . Imaging None recorded . Medication Orders Imitrex 50 mg tablet 2023 024 [facility], [address] [place] [address], [address], 4 10:42:01 Trulicit y 0.75 mg/0.5 mL subcutan eous pen injector 2023 024 [facility], [address] [place] [address], [address], 4 10:42:00 Ozempic 0.25 mg or 0.5 mg (2 mg/1.5 mL) subcutan eous pen injector 2023 024 [facility], [address] [place] [address], [address], 4 10:59:06 simvasta tin 40 mg tablet 2023 024 [facility], [address] [place] [address], [address], 4 10:20:39 Wellbutr in XL 150 mg 24 hr tablet, extended release 2022 023 [facility], [address] [place] [address], [address], 3 14:50:25 metformi n ER 500 mg tablet,e xtended release 24 hr 2022 024 [facility], [address] [place], [address], 4 10:23:34 fluoxeti ne 20 mg capsule 2022 023 [facility], [address] [place], [address], 3 10:23:30 Patient TargetsNo targets recorded. Patient Instructions Encounter Date Encounter Id Patient Instructions Last Modified By Organization Details Last Modified Time 09/05/2023 [id number] A healthy lifestyle: care instructions nsuthan Not available 09/05/2023 10:22:20 f/u in 2month nsuthan Not available 10:23:00 03/31/2024 [id number] A healthy lifestyle: care instructions nsuthan Not available 03/31/2024 10:20:30 f/u in 3 month nsuthan Not available 0 03/31/2024 10:20:42 07/02/2024 [id number] f/u in 3month nsuthan Not available 0 07/02/2024 10:30:04 Reason for Referral None Reported. Results Created Date Observation Date Name Description Value Unit Range Abnormal Flag Note LastModifiedBy Organization Detail LastModifiedTime 07/02/20 24 07/03/2024 LIPID PANEL cholesterol, total 275 mg/dL 100-19 9 above high normal Not Available [facility] ([facility]) [address] [facility], [place], [address], 07/03/2024 03:09:26 07/02/20 24 07/03/2024 LIPID PANEL triglyceride s 144 mg/dL 0-149 Not Available [facility] ([facility]) [address] [facility], [place], [address], 07/03/2024 03:09:26 07/02/20 24 07/03/2024 LIPID PANEL HDL cholesterol 43 mg/dL >39 Not Available [facility] ([facility]) [address] [facility] [place], [address], 07/03/2024 03:09:26 07/02/20 24 07/03/2024 LIPID PANEL VLDL cholesterol piedad 27 mg/dL 5-40 Not Available [facility] ([facility]) [address] [facility] [place], [address], 07/03/2024 03:09:26 07/02/20 24 07/03/2024 LIPID PANEL LDL chol calc ([facility]) 205 mg/dL 0-99 above high normal Not Available [facility] ([facility]) [address] [facility] [place], [address], 07/03/2024 03:09:26 07/02/20 24 07/03/2024 LIPID PANEL LDL calc comment: COMMEN T Consi ankita evalu ating for Famil ial Hyper dana stero lemia (FH), if clini moncho indic ated. Not Available [facility] ([facility]) [address] [facility], [place], [address], 07/03/2024 03:09:26 07/02/20 24 07/03/2024 COMP. METAB OLIC PANEL (14) glucose 122 mg/dL 70-99 above high normal Not Available [facility] ([facility]) [address] [facility] [place], [address], 07/03/2024 03:09:26 07/02/20 24 07/03/2024 COMP. METAB OLIC PANEL (14) BUN 11 mg/dL 6-20 Not Available [facility] ([facility]) [address] [facility] [place], [address], 07/03/2024 03:09:26 07/02/20 24 07/03/2024 COMP. METAB OLIC PANEL (14) creatinine 0.74 mg/dL 0.57-1 .00 Not Available [facility] ([facility]) [address] [place], [address], 07/03/2024 03:09:26 07/02/20 24 07/03/2024 COMP. METAB OLIC PANEL (14) eGFR 107 mL/mi n/1.7 3 >59 Not Available [facility] ([facility]) [address] [facility], [place], [address], 07/03/2024 03:09:26 07/02/20 24 07/03/2024 COMP. METAB OLIC PANEL (14) BUN/creatini ne ratio 15 9-23 Not Available [facility] ([facility]) [address] [facility], [place], [address], 07/03/2024 03:09:26 07/02/20 24 07/03/2024 COMP. METAB OLIC PANEL (14) sodium 138 mmol/ L 134-14 4 Not Available [facility] ([facility]) [address] [facility], [place], [address], 07/03/2024 03:09:26 07/02/20 24 07/03/2024 COMP. METAB OLIC PANEL (14) potassium 4.2 mmol/ L 3.5-5. 2 Not Available [facility] ([facility]) [address] [facility], [place], [address], 07/03/2024 03:09:26 07/02/20 24 07/03/2024 COMP. METAB OLIC PANEL (14) chloride 103 mmol/ L 96-106 Not Available [facility] ([facility]) [address] [facility], [place], [address], 07/03/2024 03:09:26 07/02/20 24 07/03/2024 COMP. METAB OLIC PANEL (14) carbon dioxide, total 21 mmol/ L 20-29 Not Available [facility] ([facility]) [address] [facility], [place], [address], 07/03/2024 03:09:26 07/02/20 24 07/03/2024 COMP. METAB OLIC PANEL (14) calcium 9.2 mg/dL 8.7-10 .2 Not Available [facility] ([facility]) [address] [facility] [place], [address], 07/03/2024 03:09:26 07/02/20 24 07/03/2024 COMP. METAB OLIC PANEL (14) protein, total 6.8 g/dL 6.0-8. 5 Not Available [facility] ([facility]) [address] [facility] [place], [address], 07/03/2024 03:09:26 07/02/20 24 07/03/2024 COMP. METAB OLIC PANEL (14) albumin 4.0 g/dL 3.9-4. 9 Not Available [facility] ([facility]) [address] [facility] [place], [address], 07/03/2024 03:09:26 07/02/20 24 07/03/2024 COMP. METAB OLIC PANEL (14) globulin, total 2.8 g/dL 1.5-4. 5 Not Available [facility] ([facility]) [address] [facility] [place], [address], 07/03/2024 03:09:26 07/02/20 24 07/03/2024 COMP. METAB OLIC PANEL (14) bilirubin, total 0.2 mg/dL 0.0-1. 2 Not Available [facility] ([facility]) [address] [facility] [place], [address], 07/03/2024 03:09:26 07/02/20 24 07/03/2024 COMP. METAB OLIC PANEL (14) alkaline phosphatase 105 IU/L 44-121 Not Available [facility] ([facility]) [address] [facility] [place], [address], 07/03/2024 03:09:26 07/02/20 24 07/03/2024 COMP. METAB OLIC PANEL (14) AST (SGOT) 20 IU/L 0-40 Not Available [facility] ([facility]) [address] [facility], [place], [address], 07/03/2024 03:09:26 07/02/20 24 07/03/2024 COMP. METAB OLIC PANEL (14) ALT (SGPT) 25 IU/L 0-32 Not Available [facility] ([facility]) [address] [facility], [place], [address], 07/03/2024 03:09:26 07/02/20 24 07/02/2024 HEMOG LOBIN A1C hemoglobin A1C 6.3 % 4.8-5. 6 above high normal Predi abete s: 5.7 - 6.4 Diabe guera: >6.4 Glyce blossom contr ol for adult s with diabe guera: <7.0 Not Available [facility] ([facility]) [address] [facility], [place], [address], 07/03/2024 03:09:27 07/02/20 24 07/03/2024 TSH TSH 4.350 uIU/m L 0.450- 4.500 Not Available [facility] ([facility]) [address] [place], [address], 07/03/2024 03:09:28 07/02/20 24 07/02/2024 CBC, PLATE LET, NO DIFFE RENTI AL WBC 8.6 x10e3 /uL 3.4-10 .8 Not Available [facility] ([facility]) [address] [place], [address], 07/03/2024 03:09:28 07/02/20 24 07/02/2024 CBC, PLATE LET, NO DIFFE RENTI AL RBC 4.58 x10e6 /uL 3.77-5 .28 Not Available [facility] ([facility]) [address] [place], [address], 07/03/2024 03:09:28 08/08/07/02/2024 CBC, PLATE LET, NO DIFFE RENTI AL hemoglobin 13.6 g/dL 11.1-1 5.9 Not Available [facility] ([facility]) [address] [place], [address], 07/03/2024 03:09:28 07/02/20 24 07/02/2024 CBC, PLATE LET, NO DIFFE RENTI AL hematocrit 40.9 % 34.0-4 6.6 Not Available [facility] ([facility]) [address] [facility], [place], [address], 07/03/2024 03:09:28 07/02/2007/02/2024 CBC, PLATE LET, NO DIFFE RENTI AL MCV 89 fL 79-97 Not Available [facility] ([facility]) [address] [facility], [place], [address], 07/03/2024 03:09:28 07/02/20 24 07/02/2024 CBC, PLATE LET, NO DIFFE RENTI AL MCH 29.7 pg 26.6-3 3.0 Not Available [facility] ([facility]) [address] [facility], [place], [address], 07/03/2024 03:09:28 07/02/2007/02/2024 CBC, PLATE LET, NO DIFFE RENTI AL MCHC 33.3 g/dL 31.5-3 5.7 Not Available [facility] ([facility]) [address] [facility], [place], [address], 07/03/2024 03:09:28 07/02/2007/02/2024 CBC, PLATE LET, NO DIFFE RENTI AL RDW 13.0 % 11.7-1 5.4 Not Available [facility] ([facility]) [address] [place], [address], 07/03/2024 03:09:28 07/02/20 24 07/02/2024 CBC, PLATE LET, NO DIFFE RENTI AL platelets 380 x10e3 /uL 150-45 0 Not Available [facility] ([facility]) [address] [facility], [place], [address], 07/03/2024 03:09:28 10/23/20 23 10/23/2023 US, thyro id No observ ation record ed. [facility] [address], [place], [address], 10/24/2023 18:10:51 Result Notes None recorded. Problems Name Problem SNOMED Code Status Onset Date Resolution Date Notes Provider Name and Address Organization Details Recorded Time Mixed anxiety and depressiv e disorder 161271711 Active 2017 Geovanny Whittaker MD Attn: Accounting ,[address] [facility], [place], [address] , [facility] - [facility] 4 10:01:48 Hyperlipi demia 09315410 Active 2017 Not Available [facility] 3 17:29:38 Bilateral heel pain 64001388474 104434 Active 2018 sees podiatris t Not Available [facility] 3 17:29:38 Pain of right elbow joint 30850105580 714760 Active 2020 Not Available [facility] 3 17:29:38 Hyperglyc emia 59315998 Active 2020 Not Available [facility] 3 17:29:38 Carpal tunnel syndrome of right wrist 86026897709 9108 Active 2021 s/p sx on 11/2021 Not Available [facility] 3 17:29:38 Neck pain 12932589 Active 2021 disc disease - stopped seeing pain mx /Dr.Moore Geovanny Whittaker MD Attn: Accounting ,[address] [facility], [place], [address] , [place] - [facility] 3 14:37:07 Obstructi ve sleep apnea syndrome 47193295 Active 2021 on cpap- sees pulmo Not Available [facility] 3 17:29:38 Drug overdose - suicide Active 2022 Not Available [facility] 3 17:29:38 Metabolic syndrome X 702058460 Active 2022 Geovanny Whittaker MD Attn: Accounting ,[address] [facility], [place], [address] , [place] - [facility] 3 10:22:41 Thyroid nodule 881212810 Active [address] - us 10/17-s/p FNA-sees endo Geovanny Whittaker MD Attn: Accounting ,[address] [facility], [place], [address] , [place] - [facility] 4 10:00:56 Syncope 266308944 Active 2022 Geovanny Whittaker MD Attn: Accounting ,[address] [facility], [place], [address] , [facility] - [facility] 3 14:39:56 Biliary sludge 01877402 Active 2023 s/p cholecyst ectomy Geovanny Whittaker MD Attn: Accounting ,[address] [facility], [place], [address] , [place] - [facility] 4 10:18:50 Notes:LRT 02/2014 Some proble ms listed in Documents: #[id number], #[id number] could not be added to this patient's chart. Please review these documents and add these problems to the patient's chart manually as needed. Problem Notes None recorded. Procedures Surgical History Date Name Laterality Status Provider Name and Address Organization Details Recorded Time 2023 esophagogastroduodenoscopy completed CARLOS Cota [place] - [facility] 4 14:29:08 2021 Carpal tunnel surgery completed Elisabeth Guerrero [place] - [facility] 2 12:13:43 Caesarean Section completed Elisabeth Guerrero [place] - [facility] 8 10:18:44 Imaging Results Imaging Date Name Status LastModified by [facility] Details LastModified Time 10/23/2023 US, thyroid completed [facility] [address], [place], [address], 10/24/2023 18:10:51 Procedure Notes None recorded. Medical Equipment None Reported. Allergies Allergen ID Allergen Name Allergen Category Reaction Reaction Severity Criticality Documentation Date Start Date Code Code System Note Provider Name and Address Organization Details Recorded Time 851921 clindamyc in Not available lighthead edness Not available Not available 12/18/2017 2582 RxNorm Not Available Not Available Not Available Medications Name Sig Start Date Stop Date Status Note LastModified by Organization Details LastModified Time Prescripti on - Prior Authorizat ion Request 07/13 completed Not Available Not Available Not Available cetirizine 5 mg-pseudoe phedrine ER 120 mg tablet,ext ended release,12 hr Take by oral route for 12 days. 07/02 completed Not Available Not Available Not Available cyclobenza yue 10 mg tablet 12/21 completed not taking Not Available Not Available Not Available Mirena 21 mcg/24 hr (up to 8 years) 52 mg intrauteri ne device active Not Available Not Available No t Available azelastine 0.05 % eye drops INSTILL 1 DROP INTO EACH EYE TWICE DAILY NEEDED 09/05 completed Not Available Not Available Not Available ropinirole 1 mg tablet TAKE 1 TABLET BY MOUTH NIGHTLY active Not Available Not Available No t Available trazodone 50 mg tablet Take 1 tablet every day by oral route at bedtime. 03/07 completed prn Not Available Not Available Not Available ibuprofen 800 mg tablet 07/24 completed Not Available Not Available Not Available Lidocaine Viscous 2 % mucosal solution Take 10 mL 3 times a day by oral route as needed for 2 days. 03/16 completed Not Available Not Available Not Available tizanidine 4 mg tablet TAKE 1 TABLET BY MOUTH ONCE DAILY NEEDED active Not Available Not Available No t Available fluconazol e 150 mg tablet TAKE ONE TABLET BY MOUTH A ONE-TIME DOSE THEN REPEAT IN 3 DAYS IF NEEDED 09/05 completed Not Available Not Available Not Available hydrocodon e 5 mg-acetami nophen 325 mg tablet TAKE 1 TABLET BY MOUTH EVERY 8 HOURS NEEDED FOR MODERATE OR MORE SEVERE PAIN 08/08 /2024 completed Not Available Not Available Not Available meloxicam 15 mg tablet TAKE 1 TABLET BY MOUTH ONCE DAILY active Not Available Not Available No t Available ondansetro n HCl 4 mg tablet TAKE 1 TABLET BY MOUTH EVERY 8 HOURS NEEDED FOR NAUSEA 07/02 completed Not Available Not Available Not Available prednisone 20 mg tablet 08/07 completed Not Available Not Available Not Available clonazepam 0.5 mg tablet Take 1 tablet every day by oral route as needed. 09/24 completed takes very rarely Not Available Not Available Not Available sumatripta n 50 mg tablet TAKE 1 TABLET BY MOUTH ONCE DAILY NEEDED active Not Available Not Available No t Available penicillin V potassium 500 mg tablet 08/07 completed Not Available Not Available Not Available tramadol 50 mg tablet TAKE 1 TABLET BY MOUTH EVERY 12 HOURS NEEDED FOR PAIN 03/31 completed Not Available Not Available Not Available triamcinol one acetonide 0.1 % topical cream APPLY A THIN LAYER OF CREAM EXTERNAL LY TO AFFECTED AREA TWICE DAILY active Not Available Not Available No t Available amoxicilli n 500 mg tablet Take 1 tablet every 8 hours by oral route for 7 days. 03/16 completed Not Available Not Available Not Available simvastati n 40 mg tablet TAKE 1 TABLET BY MOUTH ONCE DAILY AT BEDTIME active Not Available Not Available No t Available lidocaine- prilocaine 2.5 %-2.5 % topical cream 01/07 completed not using Not Available Not Available Not Available ketorolac 10 mg tablet 08/07 completed Not Available Not Available Not Available amoxicilli n 875 mg tablet 12/17 completed not taking Not Available Not Available Not Available pravastati n 80 mg tablet 12/18 completed Not Available Not Available Not Available ropinirole 0.25 mg tablet TAKE 4 TABLETS BY MOUTH NIGHTLY 02/15 completed Not Available Not Available Not Available dicyclomin e 20 mg tablet Take 1 tablet twice a day by oral route. 06/13 completed not taking Not Available Not Available Not Available meclizine 25 mg tablet 12/17 completed Not Available Not Available Not Available oseltamivi r 75 mg capsule Take 1 capsule twice a day by oral route for 5 days. 03/16 completed [facility] Not Available Not Available Not Available buspirone 10 mg tablet Take 1 tablet by mouth twice daily as needed 03/07 completed Not Available Not Available Not Available indomethac in 50 mg capsule ortho 12/21 completed Not Available Not Available Not Available gabapentin 300 mg capsule TAKE 1 CAPSULE BY MOUTH THREE TIMES DAILY 12/21 completed not taking Not Available Not Available Not Available metoprolol succinate ER 25 mg tablet,ext ended release 24 hr TAKE 1 TABLET BY MOUTH ONCE DAILY 07/02 completed not taking Not Available Not Available Not Available methylpred nisolone 4 mg tablets in a dose pack TAKE BY MOUTH DIRECTED ON INSIDE OF PACKAGE 07/24 completed Not Available Not Available Not Available fluoxetine 20 mg capsule Take 1 capsule by mouth once daily 2024 active Not Available Not Available Not Avai lable fluticason e propionate 50 mcg/actuat ion nasal spray,susp ension USE 2 SPRAY(S) IN EACH NOSTRIL ONCE DAILY active Not Available Not Available No t Available metformin ER 500 mg tablet,ext ended release 24 hr TAKE 1 TABLET BY MOUTH ONCE DAILY 07/02 completed not taking Not Available Not Available Not Available loratadine 10 mg tablet TAKE 1 TABLET BY MOUTH ONCE DAILY active PRN Not Available Not Available No t Available naproxen 500 mg tablet 01/31 completed Not Available Not Available Not Available ezetimibe 10 mg tablet TAKE 1 TABLET BY MOUTH ONCE DAILY active Not Available Not Available No t Available bupropion HCl XL 300 mg 24 hr tablet, extended release Take 1 tablet every day by oral route for 30 days. 12/17 completed not taking Not Available Not Available Not Available bupropion HCl XL 150 mg 24 hr tablet, extended release TAKE 1 TABLET BY MOUTH ONCE DAILY active Not Available Not Available No t Available fluocinoni de 0.1 % topical cream 01/07 completed not using Not Available Not Available Not Available diclofenac 1 % topical gel 01/07 completed not using Not Available Not Available Not Available butalbital -acetamino phen-caffe ine 50 mg-300 mg-40 mg capsule TAKE 1 CAPSULE BY MOUTH EVERY 4 HOURS NEEDED FOR HEADACHE . active Not Available Not Available No t Available Vitamin D3 50 mcg (2,000 unit) capsule TAKE 1 CAPSULE BY MOUTH ONCE DAILY active Not Available Not Available No t Available Victoza 2-Lake 0.6 mg/0.1 mL (18 mg/3 mL) subcutaneo us pen injector Inject 0.6 mg every day by subcutan eous route. 05/14 completed Not Available Not Available Not Available Trulicity 0.75 mg/0.5 mL subcutaneo us pen injector 2023 active Not Available Not Available Not Avai lable naloxone 4 mg/actuati on nasal spray ADMINIST ER A SINGLE SPRAY IN ONE NOSTRIL UPON SIGNS OF OPIOID OVERDOSE . CALL 911. REPEAT AFTER 3 MINUTES IF NO RESPONSE . 01/08 completed Not Available Not Available Not Available Ozempic 0.25 mg or 0.5 mg (2 mg/1.5 mL) subcutaneo us pen injector 07/13 completed Not Available Not Available Not Available Fluzone Quad (PF) 60 mcg (15 mcg x 4)/0.5 mL IM syringe 09/20 completed Not Available Not Available Not Available BinaxNOW COVID-19 Ag Self Test kit Use as Directed on the Package 01/08 completed Not Available Not Available Not Available Ozempic 0.25 mg or 0.5 mg (2 mg/3 mL) subcutaneo us pen injector Inject by subcutan eous route for 28 days. active Not Available Not Available No t Available Vitals Date Recorded Body height Body mass index (BMI) Body weight Heart rate Respiratory rate Body temperature Oxygen saturation Oxygen saturation in Arterial blood by Pulse oximetry Systolic blood pressure Diastolic blood pressure Provider Name and Address Organization Details Last Updated DateTime 3 165.1 cm 44.4 kg/m2 232889. 8 g 93 /min 14 /min 97.5 [degF] 98 % 98 % 122 mm[Hg] 88 mm[Hg] Elisabeth Guerrero MA [facility] 3 10:07:57 Date Recorded Body height Body mass index (BMI) Body weight Heart rate Respiratory rate Body temperature Oxygen saturation Oxygen saturation in Arterial blood by Pulse oximetry Systolic blood pressure Diastolic blood pressure Provider Name and Address Organization Details Last Updated DateTime 3 165.1 cm 45.1 kg/m2 292881. 53 g 92 /min 14 /min 97.1 [degF] 98 % 98 % 119 mm[Hg] 82 mm[Hg] Elisabeth Guerrero MA [facility] 3 14:19:49 Date Recorded Body height Body mass index (BMI) Body weight Heart rate Respiratory rate Body temperature Oxygen saturation Oxygen saturation in Arterial blood by Pulse oximetry Systolic blood pressure Diastolic blood pressure Provider Name and Address Organization Details Last Updated DateTime 4 165.1 cm 47.2 kg/m2 913172. 51 g 96 /min 16 /min 97.9 [degF] 98 % 98 % 120 mm[Hg] 84 mm[Hg] Maryana Ovalle MA [facility] 4 09:35:44 Date Recorded Body height Body mass index (BMI) Body weight Heart rate Respiratory rate Body temperature Oxygen saturation Oxygen saturation in Arterial blood by Pulse oximetry Systolic blood pressure Diastolic blood pressure Provider Name and Address Organization Details Last Updated DateTime 4 165.1 cm 47.5 kg/m2 810485. 54 g 94 /min 14 /min 97.7 [degF] 97 % 97 % 125 mm[Hg] 86 mm[Hg] Elisabeth Guerrero MA [facility] 4 10:09:25 Date Recorded Body height Provider Name an d Address Organization Details Last Updated DateTime 07/13/2024 165.1 cm Elisabeth Guerrero MA [facility] 07/13/20 24 10:21:54 Social History Question Answer Notes LastModified by Organizat ion Details LastModified Time Tobacco Smoking Status Never Smoker Elisabethstefano cruz [facility] 12/18/2017 10:16:38 Do You Have An Advance Directive? No Information not available 03/07/2021 What Is Your Level Of Alcohol Consumption? Occasional 3-4 X's A Year Information not available 12/18/2017 Are You Blind Or Do You Have Difficulty Seeing? Yes Glasses Information not available 12/21/2021 What Is Your Level Of Caffeine Consumption? Moderate Information not available 06/13/2020 How Much Tobacco Do You Chew? None Information not available 12/18/2017 In The 14 Days Before Symptom Onset, Have You Had Close Contact With A Laboratory-[facility] COVID-19 While That Case Was Ill? No Information not available 03/24/2020 In The 14 Days Before Symptom Onset, Have You Had Close Contact With A Person Who Is Under Investigation For COVID-19 While That Person Was Ill? No Works At [employer] Information not available 10/04/2020 Have You Been To An Area Known To Be High Risk For COVID-19? Yes Works At [facility] [employer] Information not available 12/21/2021 Are You Currently Employed? Yes Information not available 03/07/2021 Are You Deaf Or Do You Have Serious Difficulty Hearing? No Information not available 03/07/2021 What Type Of Diet Are You Following? REGULAR Information not available 12/14/2020 Which Illicit Or Recreational Drugs Have You Used? Denies Information not available 12/18/2017 Do You Or Have You Ever Used E-cigarettes Or Vape? Never Used Electronic Cigarettes Information not available 12/17/2019 Education 12 Information no t available 12/18/2017 What Is The Highest Grade Or Level Of School You Have Completed Or The Highest Degree You Have Received? [id number] Information not available 03/07/2021 What Is Your Occupation? [facility] [employer] Information not available 06/13/2020 Are There Any Guns Present In Your Home? No Information not available 04/08/2019 Marital Status Single Informatio n not available 12/18/2017 What Was The Date Of Your Most Recent Tobacco Screening? 07/13/2024 Information not available 07/13/2024 Performs Monthly Self-breast Exam? Yes Information no t available 03/24/2020 What Is Your Relationship Status? Single Information not available 03/07/2021 Do You Use Your Seat Belt Or Car Seat Routinely? Yes Information not available 03/07/2021 Seat Belts Used Routinely Yes Information not available 12/18/2017 Smoke Alarm In Home Yes Information not available 12/17/2019 Do You Have Smoke And Carbon Monoxide Detectors In Your Home? Yes Information not available 03/07/2021 Do You Or Have You Ever Used Smokeless Tobacco? Never Used Smokeless Tobacco Information not available 12/17/2019 How Much Tobacco Do You Smoke? No Information not available 12/17/2019 General Stress Level Medium Information not available 12/14/2020 Do You Feel Stressed (tense, Restless, Nervous, Or Anxious,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 Weeks Gestation Incision Type Labor Labor Length Hrs Delivered By Post Complications Tubal Sterilization Discharge Date Comments Discharge Information Feeding Method Contraceptive Method Maternal HG B and HCT Levels
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
--- OUTSIDE RECORDS SUMMARY | 2025-02-26 08:10 | XMS_ITS | Clinical Summary ---
Author Organization [facility] Address [address] [facility] [place] [address] Phone Care Team Providers Care Recreation Coordinator Name Role Phone Randy Gary DPM Unavailable [phone] Geovanny Rincon MD Primary Care Provider [phone] Enzo Russell MD Unavailable Matt Valdes MD Unavailable Nila Francis APRN, TANK TERMINAL GAUGER Unavailable Mike Ha MD Unavailable [phone] Allergies Active Allergy Reactions Criticality Noted Date Comments Azithromycin Nausea,Other (see Comments) 12/04/2021 LIGHTHEADED & DIZZY Erythromycin Nausea,Other (see Comments) 12/04/2021 LIGHTHEADED & DIZZY Other Nausea,Other (see Comments) 02/28/2016 Pt states all mycin family antibiotics, pt gets lightheaded and dizzy Medications clonazePAM (KLONOPIN) 0.5 MG Tablet Take 0.5 mg by mouth 3 times daily. Active buPROPion (WELLBUTRIN) 150 MG XL tablet 0 6 Active simvastatin (ZOCOR) 40 MG Tablet Take 40 mg by mouth daily. Active loratadine (CLARITIN) 10 MG Tablet Take 10 mg by mouth daily as needed. Active levonorgestrel (Mirena, 52 MG,) 20 MCG/24HR IUD 1 Intra Uterine Device by Intrauterine route once. Active rOPINIRole (REQUIP) 1 MG Tablet Take 1 Tablet by mouth nightly. 90 Tablet 3 3 Active Vitamin D3 1000 UNIT Tablet Take 25 mcg by mouth daily. Active vitamin b-12 (CYANOCOBALAMIN ) 100 MCG Tablet Take 100 mcg by mouth daily. Active tiZANidine HCl 4 MG Capsule Take 4 mg by mouth nightly. Active ezetimibe (ZETIA) 10 MG Tablet Take 1 Tablet by mouth daily. 4 Active omeprazole (PriLOSEC) 20 MG CAPSULE DELAYED RELEASEIndicati ons:Dysphagia, unspecified type,Gastroesop hageal reflux disease, unspecified whether esophagitis present Take 1 Capsule by mouth daily. 90 Capsule 3 4 Active ondansetron (ZOFRAN) 4 MG Tablet Take 1 Tablet by mouth every 8 hours as needed for Nausea - 1st line. 10 Tablet 4 Active Active Problems Problem Noted Date Diagnosed Date Dyslipidemia 08/16/2022 Restless legs syndrome (RLS) 02/08/2022 LUCIANO (obstructive sleep apnea) 09/07/2021 Morbid obesity 09/07/2021 Lipids abnormal 09/07/2021 Gastrocnemius equinus of left lower extremity Heel spur 02/28/2016 Plantar fasciitis, left 02/28/2016 Immunizations Immunization Administration Dates Next Due DTP Vaccine 05/14/1991, 9,1987,09/06,1987 Hepatitis A Vaccine, Pediatric/adolescent, 2 Dose Schedule 09/17/2003 Hepatitis B Vaccine, Pediatric/adolescent 11/27/1997,07/02/1997,06/01/1997 Hib Vaccine,unspecified Formulation 11/08/1989 Human Papillomavirus Vaccine (HPV), quadrivalent 06/11/2011,02/09/2011,12/13/2010 Influenza Vaccine 08/25/2011 Influenza Vaccine, Quadrivalent, PF 10/26/2022,0 08/17/2021,08/18/2020 Influenza Vaccine,unspecifie d Formulation 08/26/2023 Influenza, Injectable, Quadrivalent 09/08/2021,1 ,09/24/2018 Influenza, Recombinant, Quadrivalent,injectable, Pf 08/26/2023 MMR Vaccine 08/03/1993,08/06/1988 OPV 12/03/1988, 7,1987,07/07 TD VACCINE 07/21/2002 TDAP Vaccine 01/31/2018,12/12/2011 Family History Medical History Relation Name Comments Cancer Father Diabetes Father Heart Attack Father Diabetes Mother Other-comment Mother sleep apnea Relation Name Status Comments Father Alive Mother Alive Social History Tobacco Use Types Packs/Day Years Used Date Smoking Tobacco: Never Smokeless Tobacco: Never Tobacco Cessation:Counseling Given: Not Answered Alcohol Use Standard Drinks/Week Comments Yes 0 (1 standard drink = 0.6 oz pur e alcohol) OCASSIONAL Sexually Active Control Partners Comments Yes I.U.D., Surgical Male Comments No Sex and Gender Information Value Date Recorded Sex Assigned at Not on file Legal Sex Female 12:01 AM CDT Gender Identity Not on file Sexual Orientation Not on file Last Filed Vital Signs Vital Sign Reading Time Taken Comments Blood Pressure 138/75 06/22/2024 7:42 PM CDT Pulse 73 06/22/2024 6:12 PM CDT Temperature 36.9 C (98.4 F) 06/22/2024 6:12 PM CDT Respiratory Rate 18 06/22/2024 6:12 PM CDT Oxygen Saturation 100% 06/22/2024 6:12 PM CDT Inhaled Oxygen Concentration - - Weight 128.8 kg (284 lb) 06/22/2024 6:12 PM CDT Height 165.1 cm (5' 5 ) 06/22/2024 6:12 PM CDT Body Mass Index 47.26 06/22/2024 6:12 PM CDT Plan of Treatment Health Maintenance Due Date Last Done Comments Hepatitis C Virus (HCV) Screening 1987 HPV/Cotest 2017 Cervical Cancer Screening (CCS) 03/17/2023 Pap Smear 03/17/2023 03/17/2020 SARS-COV-2 Immunization ( season) 2024 12/12/2021, 03/13/2021, 02/13/2021 Influenza Immunization (Season Ended) 2025 08/26/2023, 08/26/2023, 10/26/2022, Additional history exists DTaP/Tdap/Td Immunization (8 - Td or Tdap) 02/01/2028 01/31/2018, 12/12/2011, 07/21/2002, Additional history exists Respiratory Syncytial Virus (RSV) Immunization (Adult) (1 - 1-dose 75+ series) 2062 Hepatitis B Immunization Completed 998, 07/02/1997, 06/01/1997 Meningococcal Immunization (ACWY) Aged Out No longer eligible based on patient's age to complete this topic Pneumococcal Immunization Combined Aged Out No longer eligible based on patient's age to complete this topic Rotavirus Immunization Aged Out No lo nger eligible based on patient's age to complete this topic Insurance [facility] Care Teams Recreation Coordinator Relationship Specialty Start Date End Date Geovanny Rincon MD [address] [place] [address] PCP - General Internal Medicine 02/02/19 Randy Gary DPM Podiatry 02/28/16 Enzo Russell MD [address] [place] [address] Consulting Physician Pulmonary Disease 02/08/22 Matt Valdes MD [address] [phone] Consulting Physician Endocrinology 12/25/23 Nila Francis APRN, T[employer] TERMINAL GAUGER [address] [place] [address] Nurse Practitioner Advanced Practice Nurse 02/21/24 Mike Ha MD [address] [phone] Consulting Physician General Surgery 04/03/24
--- OUTSIDE RECORDS SUMMARY | 2025-02-26 08:11 | XMS_ITS | Clinical Summary ---
Author Organization [facility] Address [address] [place] [address] Phone Care Team Providers Care Principal Solutions Architect Name Role Phone RODRIGO YANG, JAN Hughes Unavailable [phone] RAY YANG, CHELSEA Mccloud Unavailable [phone] Reason for Visit and Chief Complaint visit for: IUD Insertion - The Chief Complaint is: mirena removal and reinsertion - doing well withIUD for cycle control - s/p btl Problems Includes: Problems addressed during this encounter and other active Problems Current Visit Onset Date Resolved Date Provider Conditio n Status History of Depression 09/10/2013 Unknown ELISE JANE MD Resolved Last Documented On 05/17/2014 10:24AM ; [facility] Note: was Closed. Past Visits Onset Date Resolved Date Provider Condition Status Hyperlipidemia 03/09/2019 ARGENIS BERRIOSNP-BC Active Last Documented On 9 8:02AM ; [facility] Plan of Treatment - Clinical summary provided to patient - Last Documented On 01/18/2020 1:16PM ; [facility] Pending Tests Order Diagnosis Results Due Ordering P mason In office procedures - OB IUD Insertion Encntr for removal and reinsertion of uterin contracep dev 02/01/20 ARGENIS CATES-BC Last Documented On 0 1:15PM ; [facility] In office procedures - OB IUD Removal Encntr for removal and reinsertion of uterin contracep dev 02/01/20 ARGENIS BERRIOSNP-BC Last Documented On 0 1:15PM ; [facility] Assessments Includes: Assessments from this encounter Findings - Contraceptive management: Insertion of IUD - Last Documented On 01/18/2020 1:16PM ; [facility] Medical Equipment - Implanted Devices Includes: Current Devices No Medical Equipment Recorded Medications Includes: Medications discussed during this encounter and other current Medications Discontinued / Stopped on this date on 02/15/2015 Mirena 20 MCG/24HR Intrauterine device Pr ovider: Diagnosis: Last Documented On 0 12:57PM By ARGENIS MCCORMICK ; [facility] Current Medications (continue as prescribed) Vitamin B12 500 MCG Oral Tablet 05/21/2023 Provider: Diagnosis: Last Documented On 05/21/2023 3:07PM By Marie GONZALEZ ; [facility] Diflucan 150 MG Oral Tablet 05/21/2023 Provider: ARGENIS MCCORMICK Diagnosis: as directed - one po x 1 dos e and march rpt. in 3 days if needed Last Documented On 3 3:37PM By ARGENIS MCCORMICK ; [facility] Biotin 10 MG Oral Capsule 05/21/2023 Provider: Diagnosis: Last Documented On 05/21/2023 3:07PM By Marie GONZALEZ ; [facility] QC Vitamin D3 25 MCG (1000 UT) Oral Capsule 05/21/2023 Provider: Diagnosis: Last Documented On 05/21/2023 3:06PM By Marie GONZALEZ ; [facility] tiZANidine HCl 4 MG Oral Tablet 05/03/2023 Provider: REGGIE WHITTAKER Diagnosis: Last Documented On 05/21/2023 3:05PM By Marie GONZALEZ ; [facility] rOPINIRole HCl 1 MG Oral Tablet 04/09/2023 Provider: Diagnosis: Last Documented On 05/21/2023 3:05PM By Marie GONZALEZ ; [facility] FLUoxetine HCl 20 MG Oral Capsule 02/12/2023 Provide r: REGGIE WHITTAKER Diagnosis: Last Documented On 05/21/2023 3:05PM By Marie GONZALEZ ; [facility] Mirena (52 MG) 20 MCG/24HR Intrauterine Intraute rine device 01/18/2020 Provider: Diagnosis: Last Documented On 0 12:58PM By ARGENIS MCCORMICK ; [facility] Simvastatin 20MG Oral Tablet 03/09/2019 Provider: Diagnosis: Last Documented On 03/09/2019 8:09AM By SHAKEEL GONZALEZ ; [facility] Past Medications on file CeleXA 20 MG OR TABS 09/15/2013 - 10/15/2013 Provider: Diagnosis: Called into [facility] in [facility] Last Documented On 09/15/2013 11:04AM By WESLEY SORENSEN ; [facility] Diflucan 150 MG OR TABS 07/03/2013 - 08/02/2013 Provider: ARGENIS MCCORMICK Diagnosis: CANDIDAL VULVOVA GINITIS take one dose po x 1 and repeat in 3 days Last Documented On 3 1:11PM By ARGENIS MCCORMICK ; [facility] 19 OR TABS 03/05/2013 - 02/28/2014 Provider: ARGENIS MCCORMICK Diagnosis: Last Documented On 3 9:09AM By ARGENIS MCCORMICK ; [facility] Zithromax 1 GM OR PACK 08/28/2012 - 09/27/2012 Provide r: ARGENIS MCCORMICK Diagnosis: 1 gm dose po x 1 - no liquid dosing please! Last Documented On 2 2:31PM By ARGENIS MCCORMICK ; [facility] Flagyl 500 MG OR TABS 08/28/2012 - 09/04/2012 Provider : ARGENIS MCCORMICK Diagnosis: Last Documented On 2 2:30PM By ARGENIS MCCORMICK ; [facility] Bactrim DS 800-160 MG OR TABS 03/27/2012 - 04/03/2012 Provider: ARGENIS MCCORMICK Diagnosis: Last Documented On 2 2:14PM By ARGENIS MCCORMICK ; [facility] Ibuprofen 800 MG OR TABS 07/23/2011 - 09/21/2011 Provi ankita: ARGENIS MCCORMICK Diagnosis: Last Documented On 1 1:05PM By ARGENIS MCCORMICK ; [facility] GNP Vitamins OR TABS 12/14/2009 - 12/09/2010 Provider: ARGENIS CATES-BC Diagnosis: Last Documented On 0 2:25PM By ARGENIS CATES-BC ; [facility] CitraNatal 90 DHA 90-1 & 250 MG OR MISC 12/12/2009 - 12/07/2010 Provider: ARGENIS BERRIOS NP-BC Diagnosis: Last Documented On 0 2:12PM By ARGENIS CATES-BC ; [facility] Medications Administered Includes: Administered Medications from this encounter No Administered Medications Recorded Vital Signs Includes: Vital Signs from this encounter Vital Name 01/18/2020 12:58P 01/18/2020 12: 54P Blood Pressure Sitting L 130/70 BP Cuff Size Large Height (in) 65 65 Weight (lb) 264 Body Mass Index (kg/m2) 43.9 Body Surface Area (m2) 2.2 Last Documented: On 01/18/2020 12:59P M ; [facility] On 01/18/2020 12:54PM ; [facility] Results Includes: Results discussed during this encounter No Results Recorded For Specified Dates History of Present Illness Includes: History of Present Illness from this encounter YAYA FONG is a 34 year old female. - Medication reconciliation performed. Social History Description Last Updated Sexually active with 1 partners in the l ast year 05/21/2023 Last Documented On 0 12:55PM ; [facility] Non-smoker 03/17/2020 Last Documented On 0 12:55PM ; [facility] Smoking Status Unknown Procedures and Surgical History Includes: Procedures from this encounter Procedures Code Diagnosis Performing Provider Service L ocation Service Date insertion of intrauterine device (IUD) .Risks versus benefits discussed. Consent signed [id number] Last Documented On 0 12:57PM ; [facility] Sterile speculum inserted Last Documented On 0 12:57PM ; [facility] Cervix easily visualized , cervix swabbe d with Betadine Last Documented On 0 12:57PM ; [facility] Tenaculum applied to anterior cervix. Last Documented On 0 12:57PM ; [facility] Uterus sounded to 7 cm Last Documented On 0 1:16PM ; [facility] Mirena shade bander phlange positioned to 7 cm Last Documented On 0 1:16PM ; [facility] Mirena shade bander introduced through cervi x to 6.5 cm Last Documented On 0 1:16PM ; [facility] Mirena released and shade bander advanced to 7 cm Last Documented On 0 1:16PM ; [facility] Dental Service Chief removed. Last Documented On 0 12:57PM ; [facility] Tenaculum removed and pressu re applied to tenaculum sites with cotton swabs until hemostatis obtained. Last Documented On 0 12:57PM ; [facility] IUD strings trimmed to 3-4 cm. Last Documented On 0 12:57PM ; [facility] Patient tolerated procedure well Last Documented On 0 12:57PM ; [facility] Instructed to use non-hormonal, back-up method of control x 1 month Last Documented On 0 12:57PM ; [facility] Patient verbalizes understanding Last Documented On 0 12:57PM ; [facility] RTO in month for IUD check. Last Documented On 0 12:57PM ; [facility] Encouraged to call office with any IUD c oncerns Last Documented On 0 12:57PM ; [facility] Surgical History Last Updated Surgical / procedural history 716-10 05/21/2023 Last Documented On 0 12:55PM ; [facility] History of tubal ligation 02/15/2015 Last Documented On 0 12:55PM ; [facility] Medical History Includes: Medical History addressed during this encounter Description Last Updated LMP: 201405/21/2023 Last Documented On 0 12:55PM ; [facility] Sexually active 03/17/2020 Last Documented On 0 12:55PM ; [facility] Contraception: mirena 02-15-03/17/2020 Last Documented On 0 12:55PM ; [facility] Result: normal 03/17/2020 Last Documented On 0 12:55PM ; [facility] History of Pap smear done 03/09/2019 02/2 02/2020 Last Documented On 0 1:16PM ; [facility] section 03/09/2019 Last Documented On 0 12:55PM ; [facility] History of hyperlipidemia 03/09/2019 Last Documented On 0 12:55PM ; [facility] 2 02/15/2015 Last Documented On 0 12:55PM ; [facility] Para 2 02/15/2015 Last Documented On 0 12:55PM ; [facility] History of depression H/O an xiety, used to take Celexa, no meds since finding out 01/14/2014 Last Documented On 0 12:55PM ; [facility] Family History Includes: Family History addressed during this encounter Description Last Updated Maternal history of diabetes mellitus ma sb grandma,mother 05/21/2023 Last Documented On 0 12:55PM ; [facility] Paternal history of family history of he art disease father 03/09/2019 Last Documented On 0 12:55PM ; [facility] Maternal history of pure hypercholestero lemia mother 03/09/2019 Last Documented On 0 12:55PM ; [facility] Paternal grandmother's history of hypert ension fathers side-pgm 03/09/2019 Last Documented On 0 12:55PM ; [facility] Family history of diabetes mellitus mate rnal grandma 02/15/2015 Last Documented On 0 12:55PM ; [facility] Spouse name: Fei 08/13/2013 Last Documented On 0 12:55PM ; [facility] Family history [use for free text] 04/09 Last Documented On 0 12:55PM ; [facility] Family history of heart disease father 0 12/31/2012 Last Documented On 0 12:55PM ; [facility] Family history of hypertension fathers s marcos 12/31/2012 Last Documented On 0 12:55PM ; [facility] Family history of malignant neoplasm of the large intestine MAT AUNT 08/28/2012 Last Documented On 0 12:55PM ; [facility] Review of Systems Includes: Review of Systems from this encounter No Review of Systems Recorded Mental Status Includes: Mental Status from this encounter No Mental Status Recorded Functional Status Includes: Functional Status from this encounter No Functional Status Recorded Physical Exam Includes: Physical Exam from this encounter Allergies Includes: Active Allergies Substance Type Reaction Onset Date Resolved Date Statu s Azithromycin Dihydrate Allergy 09/15/2012 Active Last Documented On 3 3:08PM ; [facility] Encounters Encounter Provider Location Date Check-In Time Check-Out Time Diagnosis PROCEDURE OFFICE ARGENIS DIALLO [facility] 01/18/20 20 12:52PM 1:18PM Contraceptive Management: Insertion of Iud Insurance Includes: Active Insurance Policies Plan Name Member ID Group # Subscriber Relationship Effect shabbir Dates 1 - [facility] [id number] LILIAN FONG Self Clinical Notes Includes: Clinical Notes from this encounter No Clinical Notes Recorded
--- OUTSIDE RECORDS SUMMARY | 2025-02-26 08:11 | XMS_ITS | Clinical Summary ---
Author Organization [facility] Address [address] [place] [address] Phone Care Team Providers Care Customs Compliance Specialist Name Role Phone RODRIGO YANG, JAN C Unavailable [phone] RAY YANG, CHELSEA Mccloud Unavailable [phone] Reason for Visit and Chief Complaint gynecologic annual exam - The Chief Complaint is: Annual Problems Includes: Problems addressed during this encounter and other active Problems Current Visit Onset Date Resolved Date Provider Conditio n Status History of Depression 09/10/2013 Unknown ELISE JANE MD Resolved Last Documented On 05/17/2014 10:24AM ; [facility] Note: was Closed. Past Visits Onset Date Resolved Date Provider Condition Status Hyperlipidemia 03/09/2019 ARGENIS DIALLO [facility]- Active Last Documented On 9 8:02AM ; [facility] Plan of Treatment - Clinical summary provided to patient - Last Documented On 03/17/2020 8:12AM ; [facility] Instructions to patient Instructions for patient : B reast Self Exam discussed Last Documented On 0 7:58AM ; [facility] Lose weight Last Documented On 0 7:59AM ; [facility] Education and Decision Aids were provided during visit for: Patient Education: Daily piedad cium and vitamin D Last Documented On 0 7:58AM ; [facility] Patient Education: weight be aring exercise Last Documented On 0 7:58AM ; [facility] Assessments Includes: Assessments from this encounter Findings - NORMAL FEMALE EXAM - Last Documented On 03/17/2020 8:12AM ; [facility] Instructions Includes: Instructions from this encounter Instructions to patient Instructions for patient : B reast Self Exam discussed Last Documented On 0 7:58AM ; [facility] Lose weight Last Documented On 0 7:59AM ; [facility] Education and Decision Aids were provided during visit for: Patient Education: Daily piedad cium and vitamin D Last Documented On 0 7:58AM ; [facility] Patient Education: weight be aring exercise Last Documented On 0 7:58AM ; [facility] Medical Equipment - Implanted Devices Includes: Current Devices No Medical Equipment Recorded Medications Includes: Medications discussed during this encounter and other current Medications Discontinued / Stopped on this date on 03/09/2019 buPROPion HCl 75MG Oral Tablet Provider: Diagnosis: Last Documented On 03/17/2020 8:04AM By SHAKEEL GONZALEZ ; [facility] Current Medications (continue as prescribed) Vitamin B12 500 MCG Oral Tablet 05/21/2023 Provider: Diagnosis: Last Documented On 05/21/2023 3:07PM By Marie GONZALEZ ; [facility] Diflucan 150 MG Oral Tablet 05/21/2023 [facility] Diagnosis: as directed - one po x 1 dos e and may rpt. in 3 days if needed Last Documented On 3 3:37PM By [facility] ; [facility] Biotin 10 MG Oral Capsule 05/21/2023 Provider: Diagnosis: Last Documented On 05/21/2023 3:07PM By Marie GONZALEZ ; [facility] QC Vitamin D3 25 MCG (1000 UT) Oral Capsule 05/21/2023 Provider: Diagnosis: Last Documented On 05/21/2023 3:06PM By Marie GONZALEZ ; [facility] tiZANidine HCl 4 MG Oral Tablet 05/03/2023 Provider: REGGIE WHITTAKER Diagnosis: Last Documented On 05/21/2023 3:05PM By Marie GONZALEZ ; [facility] rOPINIRole HCl 1 MG Oral Tablet 04/09/2023 Provider: Diagnosis: Last Documented On 05/21/2023 3:05PM By Marie GONZALEZ ; [facility] FLUoxetine HCl 20 MG Oral Capsule 02/12/2023 Provide r: REGGIE WHITTAKER Diagnosis: Last Documented On 05/21/2023 3:05PM By Marie Huffman Ame ; [facility] Mirena (52 MG) 20 MCG/24HR Intrauterine Intraute rine device 01/18/2020 Provider: Diagnosis: Last Documented On 0 12:58PM By ARGENIS MCCORMICK ; [facility] Simvastatin 20MG Oral Tablet 03/09/2019 Provider: Diagnosis: Last Documented On 03/09/2019 8:09AM By SHAKEEL GONZALEZ ; [facility] Past Medications on file CeleXA 20 MG OR TABS 09/15/2013 - 10/15/2013 Provider: Diagnosis: Called into [facility] in [facility] Last Documented On 09/15/2013 11:04AM By WESLEY SORENSEN ; [facility] Diflucan 150 MG OR TABS 07/03/2013 - 08/02/2013 Provider: ARGENIS MCCORMICK Diagnosis: CANDIDAL VULVOVA GINITIS take one dose po x 1 and repeat in 3 days Last Documented On 3 1:11PM By ARGENIS MCCORMICK ; [facility] 19 OR TABS 03/05/2013 - 02/28/2014 Provider: ARGENIS MCCORMICK Diagnosis: Last Documented On 3 9:09AM By ARGENIS MCCORMICK ; [facility] Zithromax 1 GM OR PACK 08/28/2012 - 09/27/2012 Provide r: ARGENIS MCCORMICK Diagnosis: 1 gm dose po x 1 - no liquid dosing please! Last Documented On 2 2:31PM By ARGENIS MCCORMICK ; [facility] Flagyl 500 MG OR TABS 08/28/2012 - 09/04/2012 Provider : ARGENIS MCCORMICK Diagnosis: Last Documented On 2 2:30PM By ARGENIS MCCORMICK ; [facility] Bactrim DS 800-160 MG OR TABS 03/27/2012 - 04/03/2012 Provider: ARGENIS MCCORMICK Diagnosis: Last Documented On 2 2:14PM By ARGENIS MCCORMICK ; [facility] Ibuprofen 800 MG OR TABS 07/23/2011 - 09/21/2011 Provi ankita: ARGENIS MCCORMICK Diagnosis: Last Documented On 1 1:05PM By ARGENIS MCCORMICK ; [facility] GNP Vitamins OR TABS 12/14/2009 - 12/09/2010 Provider: ARGENIS MCCORMICK Diagnosis: Last Documented On 0 2:25PM By ARGENIS MCCORMICK ; [facility] CitraNatal 90 DHA 90-1 & 250 MG OR MISC 12/12/2009 - 12/07/2010 Provider: ARGENIS MCCLELLAN Diagnosis: Last Documented On 0 2:12PM By ARGENIS MCCORMICK ; [facility] Medications Administered Includes: Administered Medications from this encounter No Administered Medications Recorded Vital Signs Includes: Vital Signs from this encounter Vital Name 03/17/2020 08:00A 03/17/2020 07: 58A Blood Pressure Sitting L 120/70 BP Cuff Size Large Temp-Oral (F) 98.2 Height (in) 65 65 Weight (lb) 250 Body Mass Index (kg/m2) 41.6 Body Surface Area (m2) 2.2 Last Documented: On 03/17/2020 8:02AM ; [facility] On 03/17/2020 7:58AM ; [facility] Results Includes: Results discussed during this encounter No Results Recorded For Specified Dates History of Present Illness Includes: History of Present Illness from this encounter YAYA FONG is a 34 year old female. - Medication list reviewed - PRIMARY CARE PROVIDER : Dr Xiao - Medication reconciliation performed Social History Description Last Updated In monogamous relationship 03/17/2020 Last Documented On 0 8:12AM ; [facility] Non-smoker 03/17/2020 Last Documented On 0 8:12AM ; [facility] Not using alcohol 03/17/2020 Last Documented On 0 8:12AM ; [facility] Not using drugs 03/17/2020 Last Documented On 0 8:12AM ; [facility] Sexually active with 1 partners in the l ast year 03/17/2020 Last Documented On 0 8:12AM ; [facility] Social history changed pt still working at [email or web address] in [employer] 03/17/2020 Last Documented On 0 8:12AM ; [facility] Smoking status : Never smoker 03/17/2020 Last Documented On 0 8:12AM ; [facility] Procedures and Surgical History Includes: Procedures from this encounter Procedures Code Diagnosis Performing Provider Service L ocation Service Date low fat diet Last Documented On 0 7:59AM ; [facility] Cervical Pap Smear performed [id number] Last Documented On 0 7:59AM ; [facility] Surgical History Last Updated Surgical / procedural history 7-16-10 05/21/2023 Last Documented On 0 7:58AM ; [facility] History of tubal ligation 02/15/2015 Last Documented On 0 7:58AM ; [facility] Medical History Includes: Medical History addressed during this encounter Description Last Updated No recent change in medical history 02/24 Last Documented On 0 8:12AM ; [facility] LMP: 02/29/2020 03/17/2020 Last Documented On 0 8:12AM ; [facility] Sexually active 03/17/2020 Last Documented On 0 8:12AM ; [facility] Contraception: mirena 2-24-20 03/17/2020 Last Documented On 0 8:12AM ; [facility] History of Pap smear done 03/09/201902/24 Last Documented On 0 8:12AM ; [facility] Result: normal 03/17/2020 Last Documented On 0 8:12AM ; [facility] History of hyperlipidemia 03/09/2019 Last Documented On 0 7:58AM ; [facility] 2 02/15/2015 Last Documented On 0 7:58AM ; [facility] Para 2 02/15/2015 Last Documented On 0 7:58AM ; [facility] Requested item <0> not found 01/14/2014 Last Documented On 0 7:58AM ; [facility] Family History Includes: Family History addressed during this encounter Description Last Updated Family history unchanged 03/17/2020 Last Documented On 0 8:12AM ; [facility] Family history of diabetes mellitus mate florencel grandma 02/15/2015 Last Documented On 0 7:58AM ; [facility] Spouse name: Fei 08/13/2013 Last Documented On 0 7:58AM ; [facility] Family history [use for free text] 04/09 Last Documented On 0 7:58AM ; [facility] Family history of heart disease father 0 12/31/2012 Last Documented On 0 7:58AM ; [facility] Family history of hypertension fathers s marcos 12/31/2012 Last Documented On 0 7:58AM ; [facility] Family history of malignant neoplasm of the large intestine MAT AUNT 08/28/2012 Last Documented On 0 7:58AM ; [facility] Review of Systems Includes: Review of Systems [...] Active Last Documented On 3 3:08PM ; [facility] Encounters Encounter Provider Location Date Check-In Time Check-Out Time Diagnosis WELL WOMAN EXAM ARGENIS DIALLO [facility] 03/17/20 20 8:15AM 8:13AM Normal Female Exam Insurance Includes: Active Insurance Policies Plan Name Member ID Group # Subscriber Relationship Effect shabbir Dates 1 - [facility] [[email or web address] [id number] LILIAN Harrington Clinical Notes Includes: Clinical Notes from this encounter No Clinical Notes Recorded
--- OUTSIDE RECORDS SUMMARY | 2025-02-26 08:11 | XMS_ITS ---
Care Plan - [facility] Created on: February 26, 2025 LILIAN FONG Ame : 1985 Sex: Female Author Organization [facility] Address [address] [place] [address] Phone Care Team Providers Care [facility] Administrator Name Role Phone RODRIGO YANG, JAN Hughes Unavailable [phone] RAY YANG, CHELSEA Mccloud Unavailable [phone]
--- OUTSIDE RECORDS SUMMARY | 2025-02-26 08:11 | XMS_ITS | Clinical Summary ---
Author Organization [facility] Address [address] [place] [address] Phone Care Team Providers Care Linotypist Name Role Phone RODRIGO YANG, JAN Hughes Unavailable [phone] RAY YANG, CHELSEA Mccloud Unavailable [phone] Reason for Visit and Chief Complaint WELL WOMAN EXAM Problems Includes: Problems addressed during this encounter and other active Problems All Visits Onset Date Resolved Date Provider Condition S tatus Hyperlipidemia 03/09/2019 ARGENIS DIALLO ELE[facility]ERIO Active Last Documented On 9 8:02AM ; [facility] Plan of Treatment No Plan of Treatment Recorded Assessments Includes: Assessments from this encounter No Assessments Recorded Medical Equipment - Implanted Devices Includes: Current Devices No Medical Equipment Recorded Medications Includes: Medications discussed during this encounter and other current Medications Current Medications (continue as prescribed) Vitamin B12 500 MCG Oral Tablet 05/21/2023 Provider: Diagnosis: Last Documented On 05/21/2023 3:07PM By Marie GONZALEZ ; [facility] Diflucan 150 MG Oral Tablet 05/21/2023 Provider: ARGENIS DIALLO ELEUTERIO Diagnosis: as directed - one po x 1 dos e and may rpt. in 3 days if needed Last Documented On 3:37PM By ARGENIS MCCORMICK ; [facility] Biotin 10 MG Oral Capsule 05/21/2023 Provider: Diagnosis: Last Documented On 05/21/2023 3:07PM By Marie GONZALEZ ; [facility] QC Vitamin D3 25 MCG (1000 UT) Oral Capsule 05/21/2023 Provider: Diagnosis: Last Documented On 05/21/2023 3:06PM By Marie GONZALEZ ; [facility] tiZANidine HCl 4 MG Oral Tablet 05/03/2023 Provider: REGGIE WHITTAKER Diagnosis: Last Documented On 05/21/2023 3:05PM By Marie GONZALEZ ; [facility] rOPINIRole HCl 1 MG Oral Tablet 04/09/2023 Provider: Diagnosis: Last Documented On 05/21/2023 3:05PM By Marie GONZALEZ ; [facility] FLUoxetine HCl 20 MG Oral Capsule 02/12/2023 Provide r: REGGIE WHITTAKER Diagnosis: Last Documented On 05/21/2023 3:05PM By Marie GONZALEZ ; [facility] Mirena (52 MG) 20 MCG/24HR Intrauterine Intraute rine device 01/18/2020 Provider: Diagnosis: Last Documented On 0 12:58PM By [facility] ; [facility] Simvastatin 20MG Oral Tablet 03/09/2019 Provider: Diagnosis: Last Documented On 03/09/2019 8:09AM By SHAKEEL GONZALEZ ; [facility] Medications Administered Includes: Administered Medications from this encounter No Administered Medications Recorded Results Includes: Results discussed during this encounter No Results Recorded For Specified Dates History of Present Illness Includes: History of Present Illness from this encounter No History of Present Illness Recorded Social History No Social History Recorded - Smoking Status Unknown Medical History Includes: Medical History addressed during this encounter No Medical History Recorded Family History Includes: Family History addressed during this encounter No Family History Recorded Review of Systems Includes: Review of Systems from this encounter No Review of Systems Recorded Mental Status Includes: Mental Status from this encounter No Mental Status Recorded Functional Status Includes: Functional Status from this encounter No Functional Status Recorded Physical Exam Includes: Physical Exam from this encounter No Physical Exam Recorded Allergies Includes: Active Allergies Substance Type Reaction Onset Date Resolved Date Statu s Azithromycin Dihydrate Allergy 09/15/2012 Active Last Documented On 3 3:08PM ; [facility] Insurance Includes: Active Insurance Policies Plan Name Member ID Group # Subscriber Relationship Effect shabbir Dates 1 - [facility] [id number] LILIAN FONG Self Clinical Notes Includes: Clinical Notes from this encounter No Clinical Notes Recorded
--- OUTSIDE RECORDS SUMMARY | 2025-02-26 08:11 | XMS_ITS | Clinical Summary ---
Author Organization [facility] Address [address] [place] [address] Phone Care Team Providers Care Sales Supervisor Name Role Phone RODRIGO YANG, JAN Hughes Unavailable [phone] RAY YANG, CHELSEA Mccloud Unavailable [phone] Reason for Visit and Chief Complaint gynecologic annual exam - The Chief Complaint is: Annual-would like iud next year Problems Includes: Problems addressed during this encounter and other active Problems Current Visit Onset Date Resolved Date Provider Antonioitio n Status Hyperlipidemia 03/09/2019 ARGENIS DIALLO [facility]- Active Last Documented On 9 8:02AM ; [facility] History of Depression 09/10/2013 Unknown ELISE JANE MD Resolved Last Documented On 05/17/2014 10:24AM ; [facility] Note: was Closed. Plan of Treatment - Clinical summary provided to patient - Last Documented On 03/09/2019 8:17AM ; [facility] Instructions to patient Instructions for patient : B reast Self Exam discussed Last Documented On 9 7:46AM ; [facility] Lose weight Last Documented On 9 7:47AM ; [facility] Education and Decision Aids were provided during visit for: Patient Education: Daily piedad cium and vitamin D Last Documented On 9 7:46AM ; [facility] Patient Education: weight be aring exercise Last Documented On 9 7:46AM ; [facility] Assessments Includes: Assessments from this encounter Findings - NORMAL FEMALE EXAM - Last Documented On 03/09/2019 8:17AM ; [facility] Instructions Includes: Instructions from this encounter Instructions to patient Instructions for patient : B reast Self Exam discussed Last Documented On 9 7:46AM ; [facility] Lose weight Last Documented On 9 7:47AM ; [facility] Education and Decision Aids were provided during visit for: Patient Education: Daily piedad cium and vitamin D Last Documented On 9 7:46AM ; [facility] Patient Education: weight be aring exercise Last Documented On 9 7:46AM ; [facility] Medical Equipment - Implanted Devices Includes: Current Devices No Medical Equipment Recorded Medications Includes: Medications discussed during this encounter and other current Medications Current Medications (continue as prescribed) Vitamin B12 500 MCG Oral Tablet 05/21/2023 Provider: Diagnosis: Last Documented On 05/21/2023 3:07PM By Marie GONZALEZ ; [facility] Diflucan 150 MG Oral Tablet 05/21/2023 Provider: [facility] Diagnosis: as directed - one po x 1 dos e and may rpt. in 3 days if needed Last Documented On 3:37PM By ARGENIS DIALLO LAURIE- ; [facility] Biotin 10 MG Oral Capsule 05/21/2023 Provider: Diagnosis: Last Documented On 05/21/2023 3:07PM By Marie GONZALEZ ; [facility] [place] Vitamin D3 25 MCG (1000 UT) Oral Capsule 05/21/2023 Provider: Diagnosis: Last Documented On 05/21/2023 3:06PM By Marie GONZALEZ ; [facility] tiZANidine HCl 4 MG Oral Tablet 05/03/2023 Provider: REGGIE WHITTAKER Diagnosis: Last Documented On 05/21/2023 3:05PM By Marie GONZALEZ ; [facility] rOPINIRole HCl 1 MG Oral Tablet 04/09/2023 Provider: Diagnosis: Last Documented On 05/21/2023 3:05PM By Marie GONZALEZ ; [facility] FLUoxetine HCl 20 MG Oral Capsule 02/12/2023 Provide r: REGGIE WHITTAKER Diagnosis: Last Documented On 05/21/2023 3:05PM By Marie GONZALEZ ; [facility] Mirena (52 MG) 20 MCG/24HR Intrauterine Intraute rine device 01/18/2020 Provider: Diagnosis: Last Documented On 0 12:58PM By ARGENIS MCCORMICK ; [facility] Simvastatin 20MG Oral Tablet 03/09/2019 Provider: Diagnosis: Last Documented On 03/09/2019 8:09AM By SHAKEEL GONZALEZ ; [facility] Past Medications on file CeleXA 20 MG OR TABS 09/15/2013 - 10/15/2013 Provider: Diagnosis: Called into [facility] Last Documented On 09/15/2013 11:04AM By WESLEY SORENSEN ; [facility] Diflucan 150 MG OR TABS 07/03/2013 - 08/02/2013 Provider: ARGENIS MCCORMICK Diagnosis: CANDIDAL VULVOVA GINITIS take one dose po x 1 and repeat in 3 days Last Documented On 3 1:11PM By ARGENIS MCCORMICK ; [facility] 19 OR TABS 03/05/2013 - 02/28/2014 Provider: ARGENIS MCCORMICK Diagnosis: Last Documented On 3 9:09AM By ARGENIS MCCORMICK ; [facility] Zithromax 1 GM OR PACK 08/28/2012 - 09/27/2012 Provide r: ARGENIS MCCORMICK Diagnosis: 1 gm dose po x 1 - no liquid dosing please! Last Documented On 2 2:31PM By ARGENIS MCCORMICK ; [facility] Flagyl 500 MG OR TABS 08/28/2012 - 09/04/2012 Provider : ARGENIS MCCORMICK Diagnosis: Last Documented On 2 2:30PM By ARGENIS MCCORMICK ; [facility] Bactrim DS 800-160 MG OR TABS 03/27/2012 - 04/03/2012 Provider: ARGENIS MCCORMICK Diagnosis: Last Documented On 2 2:14PM By ARGENIS MCCORMICK ; [facility] Ibuprofen 800 MG OR TABS 07/23/2011 - 09/21/2011 Provi ankita: ARGENIS MCCORMICK Diagnosis: Last Documented On 1 1:05PM By ARGENIS MCCORMICK ; [facility] GNP Vitamins OR TABS 12/14/2009 - 12/09/2010 Provider: ARGENIS MCCORMICK Diagnosis: Last Documented On 0 2:25PM By ARGENIS MCCORMICK ; [facility] CitraNatal 90 DHA 90-1 & 250 MG OR MISC 12/12/2009 - 12/07/2010 Provider: ARGENIS MCCLELLAN Diagnosis: Last Documented On 0 2:12PM By ARGENIS MCCORMICK ; [facility] Medications Administered Includes: Administered Medications from this encounter No Administered Medications Recorded Vital Signs Includes: Vital Signs from this encounter Vital Name 03/09/2019 08:01A Blood Pressure Sitting L 124/70 BP Cuff Size Large Height (in) 65 Weight (lb) 264 Body Mass Index (kg/m2) 43.9 Body Surface Area (m2) 2.2 Last Documented: On 03/09/2019 8:05AM ; [facility] Results Includes: Results discussed during this encounter No Results Recorded For Specified Dates History of Present Illness Includes: History of Present Illness from this encounter HPI LILIAN FONG is a 33 year old female. - Medication list reviewed - PRIMARY CARE PROVIDER : Dr Xiao Social History Description Last Updated Non-smoker 03/09/2019 Last Documented On 9 8:17AM ; [facility] Not using alcohol 03/09/2019 Last Documented On 9 8:17AM ; [facility] Not using drugs 03/09/2019 Last Documented On 9 8:17AM ; [facility] Sexually active with 1 partners in the l ast year 03/09/2019 Last Documented On 9 8:17AM ; [facility] Smoking status : Never smoker 03/09/2019 Last Documented On 9 8:17AM ; [facility] Procedures and Surgical History Includes: Procedures from this encounter Procedures Code Diagnosis Performing Provider Service L ocation Service Date low fat diet Last Documented On 9 7:47AM ; [facility] normal history of Pap smear of cervix Last Documented On 9 8:07AM ; [facility] Cervical Pap Smear performed [id number] Last Documented On 9 7:47AM ; [facility] Surgical History Last Updated Surgical / procedural history 7-16-10 05/21/2023 Last Documented On 9 7:57AM ; [facility] History of tubal ligation 02/15/2015 Last Documented On 9 7:57AM ; [facility] Medical History Includes: Medical History addressed during this encounter Description Last Updated section 03/09/2019 Last Documented On 9 8:17AM ; [facility] History of hyperlipidemia 03/09/2019 Last Documented On 9 8:17AM ; [facility] Sexually active 03/09/2019 Last Documented On 9 8:17AM ; [facility] LMP: 2015 03/09/2019 Last Documented On 9 8:17AM ; [facility] Contraception: mirena 3-24-15 03/09/2019 Last Documented On 9 8:17AM ; [facility] History of Pap smear done 01/20/201302/23 Last Documented On 9 8:17AM ; [facility] Result: normal 03/09/2019 Last Documented On 9 8:17AM ; [facility] 2 02/15/2015 Last Documented On 9 7:57AM ; [facility] Para 2 02/15/2015 Last Documented On 9 7:57AM ; [facility] Requested item <0> not found 01/14/2014 Last Documented On 9 7:57AM ; [facility] Family History Includes: Family History addressed during this encounter Description Last Updated Paternal history of family history of he art disease father 03/09/2019 Last Documented On 9 8:17AM ; [facility] Maternal history of diabetes mellitus ma ternal grandma,mother 03/09/2019 Last Documented On 9 8:17AM ; [facility] Maternal history of pure hypercholestero lemia mother 03/09/2019 Last Documented On 9 8:17AM ; [facility] Paternal grandmother's history of hypert ension fathers side-pgm 03/09/2019 Last Documented On 9 8:17AM ; [facility] Spouse name: Fei 08/13/2013 Last Documented On 9 7:57AM ; [facility] Family history [use for free text] 04/09 Last Documented On 9 7:57AM ; [facility] Family history of malignant neoplasm of the large intestine MAT AUNT 08/28/2012 Last Documented On 9 7:57AM ; [facility] Review of Systems Includes: Review of [...] Active Last Documented On 3 3:08PM ; [facility] Encounters Encounter Provider Location Date Check-In Time Check-Out Time Diagnosis [employer] INTERN EXAM ARGENIS DIALLO [facility] CATH LAB TECHNOLOGIST 03/09/20 19 7:45AM 8:18AM Normal Female Exam Insurance Includes: Active Insurance Policies Plan Name Member ID Group # Subscriber Relationship Effect shabbir Dates 1 - [facility] [id number] LILIAN FONG Self Clinical Notes Includes: Clinical Notes from this encounter No Clinical Notes Recorded
--- OUTSIDE RECORDS SUMMARY | 2025-02-26 08:11 | XMS_ITS | Encounter Summary ---
Author Organization [facility] Address [address] [facility] [place] [address] Phone Care Team Providers Care Factory Supervisor Name Role Phone CookieRandy DPM Unavailable [phone] Geovanny Rincon MD Primary Care Provider [phone] Enzo Russell MD Unavailable Matt Valdes MD Unavailable Nila Francis APRN, CNP Unavailable Mike Ha MD Unavailable [phone] Encounter Details Date Type Department Care Team (Late st Contact Info) Description 12/01/2021 [facility] [address] [place] [id number] Frank Warren MD [address] [place] [address] Pre-op testing (Primary Dx) Social History Tobacco Use Types Packs/Day Years Used Date Smoking Tobacco: Never Smokeless Tobacco: Never Alcohol Use Standard Drinks/Week Comments No 0 (1 standard drink = 0.6 oz pur e alcohol) Sexually Active Control Partners Comments Yes Male Comments No Sex and Gender Information Value Date Recorded Sex Assigned at Not on file Legal Sex Female 12:01 AM CDT Gender Identity Not on file Sexual Orientation Not on file COVID-19 Exposure Response Date Recorded In the last month, have you been in contact with someone who was confirmed or suspected to have Coronavirus / COVID-19? No / Unsure 12/04/2021 9:55 AM FIRE EXTINGUISHER INSTALLER documented as of this encounter Plan of Treatment Not on file documented as of this encounter Results * SARS-COV-2 BY MOLECULAR (12/02/2021 1:40 PM FIRE EXTINGUISHER INSTALLER) Pathologist [facility] SARSCOV2 NOT DETECTED (Referenc e Range for this test is Not Detected) [facility] ID NOW 12/02/2021 3:05 PM FIRE EXTINGUISHER INSTALLER [facility] Comment:This test was perfor med by a MOLECULAR, NON-PCR method Other NASOPHARYNGEAL STRUCTURE / Unknown Non-Phlebotomy Collection / Unknown 12/02/2021 1:40 PM FIRE EXTINGUISHER INSTALLER 12/02/2021 2:40 PM FIRE EXTINGUISHER INSTALLER Narrative [facility] - 12/02/2021 3:05 PM FIRE EXTINGUISHER INSTALLER This test has been authorized by the FDA under an Emergency Use Authorization (EUA) only. Negative results should be treated as presumptive and, if inconsistent with clinical signs and symptoms or necessary for patient management, the patient should be tested with an alternative molecular assay. Negative results do not preclude SARS-CoV-2 infection or any other respiratory pathogen. Additional information for Clinicians can be found at: https://www.fda.gov/media/415418/download Additional information for Patients can be found at: https://www.fda.gov/media/952447/download Frank Warren MD MICROBIOLOGY - GENERAL ORDERA BLES Final Result [facility] [address] [place] [address] * HEMOGLOBIN & HEMATOCRIT (H&H) (12/02/2021 1:40 PM FIRE EXTINGUISHER INSTALLER) HEMOGLOBIN (HGB) 14.7 12.0 - 15.8 g/dL 12/02/2021 2:51 PM FIRE EXTINGUISHER INSTALLER [facility] HEMATOCRIT (HCT) 45.0 36.0 - 47.0 % 12/02/2021 2:51 PM FIRE EXTINGUISHER INSTALLER [facility] Blood Venipuncture / Unknown 12/02/2021 1:40 PM FIRE EXTINGUISHER INSTALLER 12/02/2021 2:41 PM FIRE EXTINGUISHER INSTALLER Frank Warren MD HEMATOLOGY ORDERABLES Final R esult [facility] [address] [place] [address] documented in this encounter Visit Diagnoses Diagnosis Pre-op testing- Primary Preoperative examination, unspecified documented in this encounter Care Teams Factory Supervisor Relationship Specialty Start Date End Date Geovanny Rincon MD [address] [place], [place] [address] PCP - General Internal Medicine 02/02/19 Randy Gary DPM Podiatry 02/28/16 Enzo Russell MD [address] [place] [phone] Consulting Physician Pulmonary Disease 02/08/22 Matt Valdes MD [address] [phone] Consulting Physician Endocrinology 12/25/23 Nila Francis APRN, [employer] [address] [place] [address] Nurse Practitioner Advanced Practice Nurse 02/21/24 Mike Ha MD [id number] [phone] Consulting Physician General Surgery 04/03/24 documented as of this encounter
--- OUTSIDE RECORDS SUMMARY | 2025-02-26 08:11 | XMS_ITS ---
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 History of Depression 09/10/2013 Unknown ELISE JANE MD Resolved Last Documented On 05/17/2014 10:24AM ; [facility] Note: was Closed. Reported Previous Std 09/10/2013 Unknown ELISE JANE MD Resolved Last Documented On 05/17/2014 10:24AM ; [facility] Note: was Closed. Respiratory Disorders 12/27/2009 Unknown ELISE JANE MD Resolved Last Documented On 09/03/2011 10:49AM ; [facility] Note: was Closed. Plan of Treatment Findings Encounter Date Ordered Clinical summary pro vided to patient WELL WOMAN - NEW PATIENT with ARGENIS DIALLO WHNP-BC 05/21/2023 Last Documented On 3 3:22PM ; [facility] Ordered Clinical summary pro vided to patient WELL WOMAN EXAM with ARGENIS DIALLO WHNP-BC 03/17/2020 Last Documented On 0 8:12AM ; [facility] Ordered Clinical summary pro vided to patient PROCEDURE OFFICE with ARGENIS DIALLO [facility] 01/18/2020 Last Documented On 0 1:16PM ; [facility] Ordered Clinical summary pro vided to patient NEW CELL LINER EXAM with ARGENIS DIALLO NP-BC 03/09/2019 Last Documented On 9 8:17AM ; [facility] Ordered Clinical summary pro vided to patient RETURN OB EXAM with ARGENIS DIALLO [facility] 01/14/2014 Last Documented On 4 9:38AM ; [facility] Ordered Clinical summary pro vided to patient RETURN OB EXAM with ARGENIS DIALLO [facility] 12/03/2013 Last Documented On 4 9:01AM ; [facility] Ordered Clinical summary pro vided to patient RETURN OB EXAM with ARGENIS DIALLO [facility] 10/08/2013 Last Documented On 3 9:23AM ; [facility] Ordered Clinical summary pro vided to patient CONSULTATION with ARGENIS DIALLO [facility] 07/03/2013 Last Documented On 3 1:14PM ; [facility] D/W pt. that celexa is a cat egory C drug and all that this entails. She is doing well with this and will likely continue use if becomes PROCEDURE OFFICE with ARGENIS DIALLO [facility] 03/05/2013 Last Documented On 3 9:09AM ; [facility] Ordered Clinical summary pro vided to patient RECHECK with ARGENIS DIALLO [facility] 09/15/2012 Last Documented On 2 2:59PM ; [facility] Ordered Clinical summary pro vided to patient PROBLEM VISIT with ARGENIS DIALLO [facility] 08/28/2012 Last Documented On 2 2:30PM ; [facility] Advised to call if sx increa se or persist - call if fever or exceesive pain/drainage PROBLEM VISIT with ARGENIS DIALLO [facility] 03/27/2012 Last Documented On 2 2:14PM ; [facility] Ordered follow-up visit 1 ye ar or as needed CELL LINER EXAM with ARGENIS DIALLO [facility] 12/01/2010 Last Documented On 1 10:17AM ; [facility] Instructions to patient Instructions for patient : B reast Self Exam discussed Last Documented On 3 2:27PM ; [facility] Instructions for patient : K eep the area around the vulva dry. Allow the area to have exposure to air. Avoid irritants such as fabric softeners and perfumed soaps.~ Last Documented On 3 3:22PM ; [facility] Lose weight Last Documented On 3 2:28PM ; [facility] Advised d/c scented bath pro ducts Last Documented On 3 3:22PM ; [facility] Safe sex counseling Last Documented On 3 2:28PM ; [facility] Instructions for patient : B reast Self Exam discussed Last Documented On 0 7:58AM ; [facility] Lose weight Last Documented On 0 7:59AM ; [facility] Instructions for patient : B reast Self Exam discussed Last Documented On 9 7:46AM ; [facility] Lose weight Last Documented On 9 7:47AM ; [facility] Instructions for patient : B reast Self Exam discussed Last Documented On 5 8:32AM ; [facility] Instructions for patient : K eep the area around the vulva dry. Allow the area to have exposure to air. Avoid irritants such as fabric softeners and perfumed soaps.~ Last Documented On 3 1:10PM ; [facility] Advised d/c scented bath pro ducts Last Documented On 3 1:10PM ; [facility] Instructions for patient ER if bleeding through reg. sized pad/tampon < 1 hour Last Documented On 3 3:03PM ; [facility] Instructions for patient ER if dizzy, vomiting or light-headed due to heavy bleeding Last Documented On 3 3:03PM ; [facility] Instructions for patient : p atient is to keep a menstrual diary to help with further evaluation and treatment Last Documented On 3 3:03PM ; [facility] Lose weight Last Documented On 3 9:09AM ; [facility] Instructions for patient : B reast Self Exam discussed Last Documented On 3 3:08PM ; [facility] Lose weight Last Documented On 3 3:12PM ; [facility] Gardasil information given a nd series encouraged Series completed! Last Documented On 3 3:13PM ; [facility] Safe sex counseling Last Documented On 3 3:12PM ; [facility] Return to the clinic if cond ition worsens or new symptoms arise Last Documented On 2 2:06PM ; [facility] ER/ Pain Precautions Last Documented On 2 2:06PM ; [facility] Instructions For Patient: pe lvic rest until test results back Last Documented On 2 2:29PM ; [facility] Instructions for patient : K eep the area around the vulva dry. Allow the area to have exposure to air. Avoid irritants such as fabric softeners and perfumed soaps.~ Last Documented On 2 2:13PM ; [facility] Instructions for patient : t he patient was instructed in the use and possible side effects of the medication prescribed. She is to maintain good hydration via p.o. fluids. We also discussed possible triggers for UTI and preventive measures Last Documented On 2 2:14PM ; [facility] Advised d/c scented bath pro ducts Last Documented On 2 2:13PM ; [facility] Patient to call if fever or back pain Last Documented On 2 2:14PM ; [facility] Instructed to decrease carbo nation and caffeine Last Documented On 2 2:14PM ; [facility] Increase water po Last Documented On 2 2:14PM ; [facility] Instructions For Patient: go od handwashing and perineal care Last Documented On 2 2:14PM ; [facility] Instructions for patient : B reast Self Exam discussed Last Documented On 2 10:14AM ; [facility] Lose weight Last Documented On 2 10:15AM ; [facility] Gardasil information given a nd series encouraged Done x 3 doses Last Documented On 2 10:29AM ; [facility] Safe sex counseling Last Documented On 2 10:15AM ; [facility] Return to the clinic if cond ition worsens or new symptoms arise Last Documented On 1 1:06PM ; [facility] ER/ Pain Precautions Last Documented On 1 1:06PM ; [facility] Instructions for patient : B reast Self Exam discussed Last Documented On 1 9:46AM ; [facility] Lose weight Last Documented On 1 10:17AM ; [facility] Gardasil information given a nd series encouraged Last Documented On 1 9:47AM ; [facility] Safe sex counseling Last Documented On 1 10:17AM ; [facility] Education and Decision Aids were provided during visit for: Patient Education: Daily piedad cium and vitamin D Last Documented On 3 2:27PM ; [facility] Patient Education: weight be aring exercise Last Documented On 3 2:27PM ; [facility] Candidiasis Vulvovaginitis I nformation Sheet Given Last Documented On 3 3:22PM ; [facility] Patient Education: Daily piedad cium and vitamin D Last Documented On 0 7:58AM ; [facility] Patient Education: weight be aring exercise Last Documented On 0 7:58AM ; [facility] Patient Education: Daily piedad cium and vitamin D Last Documented On 9 7:46AM ; [facility] Patient Education: weight be aring exercise Last Documented On 9 7:46AM ; [facility] STD screening offered and de clined Last Documented On 5 8:32AM ; [facility] New OB form given to patient SAB precautions reviewed and pnv samples given. Advised H1N1 and seasonal flu vaccine Last Documented On 3 1:11PM ; [facility] Patient counseling : Use of oral contraceptives discussed in detail including rare occurrence of heart attack, stroke, and leg clots. Patient understands that smoking increases the risk of serious side effects with any steroid-based contraceptive method Last Documented On 3 12:47PM ; [facility] Candidiasis Vulvovaginitis I nformation Sheet Given Last Documented On 3 1:10PM ; [facility] control consent review ed and signed Last Documented On 3 12:56PM ; [facility] New OB form given to patient Last Documented On 3 9:02AM ; [facility] Patient Education: Daily piedad cium and vitamin D Last Documented On 3 3:08PM ; [facility] Patient Education: weight be aring exercise Last Documented On 3 3:08PM ; [facility] Patient counseling :advised to call if sx recur - all test results from last visit reviewed - all wnl Last Documented On 2 2:58PM ; [facility] Patient counseling : STD pre vention. I discussed with the patient that condoms can reduce the chance of getting an STD but not eliminate it. Increased exposure from multiple sex partners also discussed Last Documented On 2 2:29PM ; [facility] Patient Education: Daily piedad cium and vitamin D Last Documented On 2 10:14AM ; [facility] Patient Education: weight be aring exercise Last Documented On 2 10:14AM ; [facility] Patient Education: Daily piedad cium and vitamin D Last Documented On 1 9:47AM ; [facility] Patient Education: weight be aring exercise Last Documented On 1 9:47AM ; [facility] New OB form given to patient encouraged H1N1 and seasonal flu vaccine Last Documented On 0 11:07AM ; [facility] Assessments Includes: Assessments for all patient encounters Findings Encounter Date Hyperlipidemia WELL WOMAN - NEW PATIENT with CA MELVIN DIALLO [facility] 05/21/2023 Last Documented On 3 3:22PM ; [facility] NORMAL FEMALE EXAM WELL WOMAN - NEW PATIENT with ARGENIS DIALLO [facility] 05/21/2023 Last Documented On 3 3:22PM ; [facility] NORMAL FEMALE EXAM WELL WOMAN EXAM with ARGENIS DIALLO [facility] 03/17/2020 Last Documented On 0 8:12AM ; [facility] Contraceptive management: In sertion of IUD PROCEDURE OFFICE with ARGENIS DIALLO [facility] 01/18/2020 Last Documented On 0 1:16PM ; [facility] NORMAL FEMALE EXAM NEW CELL LINER EXAM with ARGENIS LOPES [facility] 03/09/2019 Last Documented On 9 8:17AM ; [facility] Menorrhagia IUD INSERTION with ELISE JANE MD 02/15/2015 Last Documented On 5 9:31AM ; [facility] Routine pelvic exam CELL LINER EXAM with ELISE JANE MD 01/20/2015 Last Documented On 5 8:47AM ; [facility] Normal checkup (6 - 42 wk) RETURN OB EX AM with ELISE JANE MD 03/04/2014 Last Documented On 4 10:49AM ; [facility] Normal checkup (6 - 42 wk) RETURN OB EX AM with ELISE JANE MD 02/25/2014 Last Documented On 4 4:06PM ; [facility] Normal checkup (6 - 42 wk) RETURN OB EX AM with ELISE JANE MD 02/18/2014 Last Documented On 4 11:33AM ; [facility] Normal checkup (6 - 42 wk) RETURN OB EX AM with ELISE JANE MD 02/11/2014 Last Documented On 4 8:56AM ; [facility] Normal checkup (6 - 42 wk) RETURN OB EX AM with ELISE JANE MD 01/28/2014 Last Documented On 4 11:38AM ; [facility] Normal checkup (6 - 42 wk) RETU RN OB EXAM with ARGENIS DIALLO [facility] 01/14/2014 Last Documented On 4 9:38AM ; [facility] Normal checkup (6 - 42 wk) RETURN OB EX AM with ELISE JANE MD 12/31/2013 Last Documented On 4 8:13AM ; [facility] Normal checkup (6 - 42 wk) RETU RN OB EXAM with ARGENIS DIALLO [facility] 12/17/2013 Last Documented On 4 4:38PM ; [facility] Normal checkup (6 - 42 wk) [Pat ient Encounter] with ARGENIS DIALLO [facility] 12/11/2013 Last Documented On 4 1:12PM ; [facility] Normal checkup (6 - 42 wk) RETU RN OB EXAM with ARGENIS DIALLO [facility] 12/03/2013 Last Documented On 4 9:01AM ; [facility] Normal checkup (6 - 42 wk) RETURN OB EX AM with ELISE JANE MD 11/05/2013 Last Documented On 3 9:50AM ; [facility] Normal checkup (6 - 42 wk) RETU RN OB EXAM with ARGENIS Mccloud IMANI [facility] 10/08/2013 Last Documented On 3 9:23AM ; [facility] Normal checkup (6 - 42 wk) * PH ONE CALL with ARGENISJOSEPHINE DIALLO [facility]- 09/30/2013 Last Documented On 3 12:00PM ; [facility] Normal checkup (6 - 42 wk) * PHONE CALL with LEISE JANE MD 09/14/2013 Last Documented On 3 1:32PM ; [facility] Normal checkup (6 - 42 wk) NEW OB EXAM with ELISE JANE MD 09/10/2013 Last Documented On 3 3:52PM ; [facility] Amenorrhea MISSED MENSES with ARGENIS A IMANI [facility] 08/13/2013 Last Documented On 3 1:19PM ; [facility] Yesi albicans vulvovaginitis CONSULTATION wit h ARGENIS Ame IMANI [facility]- 07/03/2013 Last Documented On 3 1:14PM ; [facility] Contraceptive management PROCEDURE OFFICE with Saul DIALLO [facility]- 03/05/2013 Last Documented On 3 9:09AM ; [facility] NORMAL FEMALE EXAM CELL LINER EXAM with ARGENIS Ame IMANI Figueredo [facility]- 12/31/2012 Last Documented On 3 3:38PM ; [facility] Cervicitis PROBLEM VISIT with ARGENIS Ame IMANI [facility]- 08/28/2012 Last Documented On 2 2:30PM ; [facility] NORMAL FEMALE EXAM CELL LINER EXAM with ARGENIS DIALLO Terell [facility]- 12/17/2011 Last Documented On 2 10:29AM ; [facility] Normal routine history and physical CELL LINER EXAM wit h ARGENIS Mccloud IMANI [facility]- 12/01/2010 Last Documented On 1 10:17AM ; [facility] Routine pelvic exam CELL LINER EXAM with ARGENIS A IMANI [facility]- 12/01/2010 Last Documented On 1 10:17AM ; [facility] Contraceptive management 1 MONTH CHECK with ELISE JANE MD 08/21/2010 Last Documented On 0 1:02PM ; [facility] Contraceptive management: In sertion of IUD POST VISIT with ELISE JANE MD 07/20/2010 Last Documented On 0 4:07PM ; [facility] Normal checkup (6 - 42 wk) RETURN OB EX AM with ELISE JANE MD 06/08/2010 Last Documented On 0 10:50AM ; [facility] Normal checkup (6 - 42 wk) RETURN OB EX AM with ELISE JANE MD 05/30/2010 Last Documented On 0 10:19AM ; [facility] Normal checkup (6 - 42 wk) * PHONE CALL with ETHEL SANON M.D. 05/16/2010 Last Documented On 0 5:01PM ; [facility] Normal checkup (6 - 42 wk) RETU RN OB EXAM with THONG HUNT M.D. 05/12/2010 Last Documented On 0 12:18PM ; [facility] Normal checkup (6 - 42 wk) RETU RN OB EXAM with ARGENIS DIALLO [facility] 05/01/2010 Last Documented On 0 3:41PM ; [facility] Normal checkup (6 - 42 wk) RETU RN OB EXAM with ARGENIS DIALLO [facility] 04/17/2010 Last Documented On 0 3:50PM ; [facility] Normal checkup (6 - 42 wk) [Pat ient Encounter] with ELISE JANE MD 04/10/2010 Last Documented On 0 12:27PM ; [facility] Normal checkup (6 - 42 wk) RETURN OB EX AM with ELISE JANE MD 04/03/2010 Last Documented On 0 3:43PM ; [facility] Normal checkup (6 - 42 wk) RETU RN [facility]2010 Last Documented On 0 10:51AM ; [facility] Normal checkup (6 - 42 wk) RETURN OB EX AM with ELISE JANE MD 02/21/2010 Last Documented On 0 1:47PM ; [facility] Normal checkup (6 - 42 wk) RETU RN OB EXAM with ARGENIS CATESALEXIS 01/25/2010 Last Documented On 0 10:12AM ; [facility] Normal checkup (6 - 42 wk) NEW OB EXAM with ELISE JANE MD 12/27/2009 Last Documented On 0 1:33PM ; [facility] Amenorrhea MISSED MENSES with [facility] 11/[facility] Last Documented On 0 11:10AM ; [facility] Instructions Includes: Instructions for all patient encounters Instructions to patient Instructions for patient : Claudia reast Self Exam discussed Last Documented On 3 2:27PM ; [facility] Instructions for patient : K eep the area around the vulva dry. Allow the area to have exposure to air. Avoid irritants such as fabric softeners and perfumed soaps.~ Last Documented On 3 3:22PM ; [facility] Lose weight Last Documented On 3 2:28PM ; [facility] Advised d/c scented bath pro ducts Last Documented On 3 3:22PM ; [facility] Safe sex counseling Last Documented On 3 2:28PM ; [facility] Instructions for patient : B reast Self Exam discussed Last Documented On 0 7:58AM ; [facility] Lose weight Last Documented On 0 7:59AM ; [facility] Instructions for patient : B reast Self Exam discussed Last Documented On 9 7:46AM ; [facility] Lose weight Last Documented On 9 7:47AM ; [facility] Instructions for patient : B reast Self Exam discussed Last Documented On 5 8:32AM ; [facility] Instructions for patient : K eep the area around the vulva dry. Allow the area to have exposure to air. Avoid irritants such as fabric softeners and perfumed soaps.~ Last Documented On 3 1:10PM ; [facility] Advised d/c scented bath pro ducts Last Documented On 3 1:10PM ; [facility] Instructions for patient ER if bleeding through reg. sized pad/tampon < 1 hour Last Documented On 3 3:03PM ; [facility] Instructions for patient ER if dizzy, vomiting or light-headed due to heavy bleeding Last Documented On 3 3:03PM ; [facility] Instructions for patient : p atient is to keep a menstrual diary to help with further evaluation and treatment Last Documented On 3 3:03PM ; [facility] Lose weight Last Documented On 3 9:09AM ; [facility] Instructions for patient : B reast Self Exam discussed Last Documented On 3 3:08PM ; [facility] Lose weight Last Documented On 3 3:12PM ; [facility] Gardasil information given a nd series encouraged Series completed! Last Documented On 3 3:13PM ; [facility] Safe sex counseling Last Documented On 3 3:12PM ; [facility] Return to the clinic if cond ition worsens or new symptoms arise Last Documented On 2 2:06PM ; [facility] ER/ Pain Precautions Last Documented On 2 2:06PM ; [facility] Instructions For Patient: pe lvic rest until test results back Last Documented On 2 2:29PM ; [facility] Instructions for patient : K eep the area around the vulva dry. Allow the area to have exposure to air. Avoid irritants such as fabric softeners and perfumed soaps.~ Last Documented On 2 2:13PM ; [facility] Instructions for patient : t he patient was instructed in the use and possible side effects of the medication prescribed. She is to maintain good hydration via p.o. fluids. We also discussed possible triggers for UTI and preventive measures Last Documented On 2 2:14PM ; [facility] Advised d/c scented bath pro ducts Last Documented On 2 2:13PM ; [facility] Patient to call if fever or back pain Last Documented On 2 2:14PM ; [facility] Instructed to decrease carbo nation and caffeine Last Documented On 2 2:14PM ; [facility] Increase water po Last Documented On 2 2:14PM ; [facility] Instructions For Patient: go od handwashing and perineal care Last Documented On 2 2:14PM ; [facility] Instructions for patient : B reast Self Exam discussed Last Documented On 2 10:14AM ; [facility] Lose weight Last Documented On 2 10:15AM ; [facility] Gardasil information given a nd series encouraged Done x 3 doses Last Documented On 2 10:29AM ; [facility] Safe sex counseling Last Documented On 2 10:15AM ; [facility] Return to the clinic if cond ition worsens or new symptoms arise Last Documented On 1 1:06PM ; [facility] ER/ Pain Precautions Last Documented On 1 1:06PM ; [facility] Instructions for patient : B reast Self Exam discussed Last Documented On 1 9:46AM ; [facility] Lose weight Last Documented On 1 10:17AM ; [facility] Gardasil information given a nd series encouraged Last Documented On 1 9:47AM ; [facility] Safe sex counseling Last Documented On 1 10:17AM ; [facility] Education and Decision Aids were provided during visit for: Patient Education: Daily piedad cium and vitamin D Last Documented On 3 2:27PM ; [facility] Patient Education: weight be aring exercise Last Documented On 3 2:27PM ; [facility] Candidiasis Vulvovaginitis I nformation Sheet Given Last Documented On 3 3:22PM ; [facility] Patient Education: Daily piedad cium and vitamin D Last Documented On 0 7:58AM ; [facility] Patient Education: weight be aring exercise Last Documented On 0 7:58AM ; [facility] Patient Education: Daily piedad cium and vitamin D Last Documented On 9 7:46AM ; [facility] Patient Education: weight be aring exercise Last Documented On 9 7:46AM ; [facility] STD screening offered and de clined Last Documented On 5 8:32AM ; [facility] New OB form given to patient SAB precautions reviewed and pnv samples given. Advised H1N1 and seasonal flu vaccine Last Documented On 3 1:11PM ; [facility] Patient counseling : Use of oral contraceptives discussed in detail including rare occurrence of heart attack, stroke, and leg clots. Patient understands that smoking increases the risk of serious side effects with any steroid-based contraceptive method Last Documented On 3 12:47PM ; [facility] Candidiasis Vulvovaginitis I nformation Sheet Given Last Documented On 3 1:10PM ; [facility] control consent review ed and signed Last Documented On 3 12:56PM ; [facility] New OB form given to patient Last Documented On 3 9:02AM ; [facility] Patient Education: Daily piedad cium and vitamin D Last Documented On 3 3:08PM ; [facility] Patient Education: weight be aring exercise Last Documented On 3 3:08PM ; [facility] Patient counseling :advised to call if sx recur - all test results from last visit reviewed - all wnl Last Documented On 2 2:58PM ; [facility] Patient counseling : STD pre vention. I discussed with the patient that condoms can reduce the chance of getting an STD but not eliminate it. Increased exposure from multiple sex partners also discussed Last Documented On 2 2:29PM ; [facility] Patient Education: Daily piedad cium and vitamin D Last Documented On 2 10:14AM ; [facility] Patient Education: weight be aring exercise Last Documented On 2 10:14AM ; [facility] Patient Education: Daily piedad cium and vitamin D Last Documented On 1 9:47AM ; [facility] Patient Education: weight be aring exercise Last Documented On 1 9:47AM ; [facility] New OB form given to patient encouraged H1N1 and seasonal flu vaccine Last Documented On 0 11:07AM ; [facility] Medical Equipment - Implanted Devices Includes: Current and historical Devices No Medical Equipment Recorded Medications Includes: Current and historical Medications Current Medications (continue as prescribed) Vitamin B12 500 MCG Oral Tablet 05/21/2023 Provider: Diagnosis: Last Documented On 05/21/2023 3:07PM By Marie GONZALEZ ; [facility] Diflucan 150 MG Oral Tablet 05/21/2023 Provider[facility] Diagnosis: as directed - one po x 1 dos e and may rpt. in 3 days if needed Last Documented On 3 3:37PM By [facility]IS [facility]ALLO [facility] ; [facility] Biotin 10 MG Oral Capsule 05/21/2023 Provider: Diagnosis: Last Documented On 05/21/2023 3:07PM By Marie GONZALEZ ; [facility] QC Vitamin D3 25 MCG (1000 UT) Oral Capsule 05/21/2023 Provider: Diagnosis: Last Documented On 05/21/2023 3:06PM By Marie GONZALEZ ; [facility] tiZANidine HCl 4 MG Oral Tablet 05/03/2023 Provider: REGGIE WIHTTAKER Diagnosis: Last Documented On 05/21/2023 3:05PM By Marie GONZALEZ ; [facility] rOPINIRole HCl 1 MG Oral Tablet 04/09/2023 Provider: Diagnosis: Last Documented On 05/21/2023 3:05PM By Marie GONZALEZ ; [facility] FLUoxetine HCl 20 MG Oral Capsule 02/12/2023 Provide r: REGGIE WHITTAKER Diagnosis: Last Documented On 05/21/2023 3:05PM By Marie GONZALEZ ; [facility] Mirena (52 MG) 20 MCG/24HR Intrauterine Intraute rine device 01/18/2020 Provider: Diagnosis: Last Documented On 0 12:58PM By [facility] ; [facility] Simvastatin 20MG Oral Tablet 03/09/2019 Provider: Diagnosis: Last Documented On 03/09/2019 8:09AM By SHAKEEL GONZALEZ ; [facility] Past Medications on file buPROPion HCl 75MG Oral Tablet 03/09/2019 - 03/17/2020 Provider: Diagnosis: Last Documented On 03/17/2020 8:04AM By SHAKEEL GONZALEZ ; [facility] FLUoxetine HCl 20MG Oral Capsule, conventional 0 03/09/2019 - 05/21/2023 Provider: Diagnosis: Last Documented On 05/21/2023 3:06PM By Marie GONZALEZ ; [facility] Mirena 20 MCG/24HR Intrauterine device 02/15/2015 - Provider: Diagnosis: Last Documented On 0 12:57PM By ARGENIS MCCORMICK ; [facility] CeleXA 40 MG OR TABS 04/22/2014 - 01/20/2015 Provider: Diagnosis: Last Documented On 01/20/2015 8:29AM By PRINCE GONZALEZ ; [facility] [place] 5-325 MG OR TABS 03/25/2014 - 04/22/2014 Provide r: Diagnosis: Last Documented On 04/22/2014 2:49PM By WESLEY SORENSEN ; [facility] Ibuprofen 600 MG OR TABS 03/25/2014 - 04/22/2014 Provi ankita: Diagnosis: Last Documented On 04/22/2014 2:49PM By WESLEY SORENSEN ; [facility] CVS Iron 325 (65 Fe) MG OR TABS 01/28/2014 - 4 Provider: Diagnosis: Last Documented On 04/22/2014 2:49PM By WESLEY SORENSEN ; [facility] Tylenol Extra Strength 500 MG OR TABS 01/28/2014 - Provider: Diagnosis: prn for back pain Last Documented On 04/22/2014 2:50PM By WESLEY SORENSEN ; [facility] CeleXA 20 MG OR TABS 09/15/2013 - 10/15/2013 Provider: Diagnosis: Called into [facility] Last Documented On 09/15/2013 11:04AM By WESLEY SORENSEN ; [facility] Diflucan 150 MG OR TABS 07/03/2013 - 08/02/2013 Provider: ARGENIS MCCORMICK Diagnosis: CANDIDAL VULVOVA GINITIS take one dose po x 1 and repeat in 3 days Last Documented On 3 1:11PM By ARGENIS MCCORMICK ; [facility] Desogen 0.15-30 MG-MCG OR TABS 07/03/2013 - 09/10/2013 Provider: ARGENIS MCCORMICK Diagnosis: Fem Genital Symp toms NOS Last Documented On 09/10/2013 12:50PM By WESLEY SORENSEN ; [facility] CeleXA 40 MG OR TABS 03/05/2013 - 07/03/2013 Provider: Diagnosis: Last Documented On 3 12:58PM By SHAKEEL GONZALEZ ; [facility] 19 OR TABS 03/05/2013 - 02/28/2014 Provider: ARGENIS MCCORMICK Diagnosis: Last Documented On 3 9:09AM By ARGENIS MCCORMICK ; [facility] CeleXA 20 MG OR TABS 12/31/2012 - 03/05/2013 Provider: Diagnosis: Last Documented On 03/05/2013 9:02AM By SHAKEEL GONZALEZ ; [facility] Zithromax 1 GM OR PACK 08/28/2012 - 09/27/2012 Provide r: ARGENIS MCCORMICK Diagnosis: 1 gm dose po x 1 - no liquid dosing please! Last Documented On 2 2:31PM By ARGENIS MCCORMICK ; [facility] Flagyl 500 MG OR TABS 08/28/2012 - 09/04/2012 Provider : ARGENIS MCCORMICK Diagnosis: Last Documented On 2 2:30PM By ARGENIS MCCORMICK ; [facility] Bactrim DS 800-160 MG OR TABS 03/27/2012 - 04/03/2012 Provider: ARGENIS MCCORMICK Diagnosis: Last Documented On 2 2:14PM By ARGENIS MCCORMICK ; [facility] Ibuprofen 800 MG OR TABS 07/23/2011 - 09/21/2011 Provi ankita: ARGENIS MCCORMICK Diagnosis: Last Documented On 1 1:05PM By ARGENIS MCCORMICK ; [facility] Mirena (52 MG) 20 MCG/24HR IU IUD 07/21/2010 - 013 Provider: Diagnosis: Last Documented On 3 12:48PM By ARGENIS MCCORMICK ; [facility] GNP Vitamins OR TABS 12/14/2009 - 12/09/2010 Provider: ARGENIS MCCORMICK Diagnosis: Last Documented On 0 2:25PM By ARGENIS MCCORMICK ; [facility] CitraNatal 90 DHA 90-1 & 250 MG OR MISC 12/12/2009 - 12/07/2010 Provider: ARGENIS MCCLELLAN Diagnosis: Last Documented On 0 2:12PM By ARGENIS MCCORMICK ; [facility] GNP Vitamins OR TABS 11/30/2009 - 12/14/2009 Provider: Diagnosis: Last Documented On 0 2:25PM By ARGENIS MCCORMICK ; [facility] Medications Administered Includes: Administered Medications in patient's chart Medications Administered Diagnosis Date Pro vider Gardasil IM SUSP 02/09/2011 THONG SALEEM M.D. Last Documented On 1 11:19AM By ODALIS ABERNATHY MA ; [facility] Results Includes: Results from 02/27/2024 through 02/26/2025 No Results Recorded For Specified Dates History of Present Illness History of Present Illness not supported for this document type No History of Present Illness Recorded Social History Description Last Updated Alcohol use occ 05/21/2023 Last Documented On 3 3:22PM ; [facility] Tobacco non-user 05/21/2023 Last Documented On 3 3:22PM ; [facility] control is being practiced Mirena 05/21/2023 Last Documented On 3 3:22PM ; [facility] Alcohol 05/21/2023 Last Documented On 3 3:22PM ; [facility] Amount of alcohol per day: Once while Last Documented On 3 3:22PM ; [facility] Does not have anal sex 05/21/2023 Last Documented On 3 3:22PM ; [facility] Has not used injectable drugs 05/21/2023 Last Documented On 3 3:22PM ; [facility] Has sex with males only 05/21/2023 Last Documented On 3 3:22PM ; [facility] Never a smoker 05/21/2023 Last Documented On 3 3:22PM ; [facility] No drug use by a sexual partner 05/21/20 23 Last Documented On 3 3:22PM ; [facility] No sexual history reported 05/21/2023 Last Documented On 3 3:22PM ; [facility] Not using drugs 05/21/2023 Last Documented On 3 3:22PM ; [facility] Partner has not had a STD in the past ye ar 05/21/2023 Last Documented On 3 3:22PM ; [facility] Patient does not report having sex when she didn't want to 05/21/2023 Last Documented On 3 3:22PM ; [facility] Patient has not had sex unde r the influence of alcohol or drugs in the last year 05/21/2023 Last Documented On 3 3:22PM ; [facility] Sexual partner has not had o ther partners while in relationship with patient 05/21/2023 Last Documented On 3 3:22PM ; [facility] Sexual partner has not had sex with pros titutes 05/21/2023 Last Documented On 3 3:22PM ; [facility] Sexually active with partners in the las t year 05/21/2023 Last Documented On 3 3:22PM ; [facility] Non-smoker 03/17/2020 Last Documented On 0 8:12AM ; [facility] Smoking Status Unknown Procedures and Surgical History Surgical History Last Updated Surgical / procedural histor y 06-09-10 and 2014 ~Right Carpal Tunnel- 12/11/21 05/21/2023 Last Documented On 3 3:22PM ; [facility] History of tubal ligation 02/15/2015 Last Documented On 5 9:31AM ; [facility] Medical History Includes: Medical History in patient's chart Description Last Updated LMP: IUD 05/21/2023 Last Documented On 3 3:22PM ; [facility] Last pap smear date 03/17/2020 05/21/2023 Last Documented On 3 3:22PM ; [facility] # 1 Delivery date: 06/09/2010 05/21/2023 Last Documented On 3 3:22PM ; [facility] # 1 Hours in labor 13 05/21/2023 Last Documented On 3 3:22PM ; [facility] # 1 type delivery: C-sec 05/21/2023 Last Documented On 3 3:22PM ; [facility] # 1 Weeks: 2 weeks early 05/21/2023 Last Documented On 3 3:22PM ; [facility] # 1 Weight 8pd 10oz 05/21/2023 Last Documented On 3 3:22PM ; [facility] # 2 type delivery: Plan c-sec 05/21/2023 Last Documented On 3 3:22PM ; [facility] # 2 Delivery date: 03/11/2014 05/21/2023 Last Documented On 3 3:22PM ; [facility] # 2 Hours in labor: Plan c-sec 3 Last Documented On 3 3:22PM ; [facility] # 2 Weeks: 1 05/21/2023 Last Documented On 3 3:22PM ; [facility] # 2 Weight: 8pds 11oz 05/21/2023 Last Documented On 3 3:22PM ; [facility] An HIV test was not performed 05/21/2023 Last Documented On 3 3:22PM ; [facility] Diabetes 05/21/2023 Last Documented On 3 3:22PM ; [facility] Elective (s) 0 05/21/2023 Last Documented On 3 3:22PM ; [facility] No. of miscarriages: 0 05/21/2023 Last Documented On 3 3:22PM ; [facility] No. of Pregnancies: 2 05/21/2023 Last Documented On 3 3:22PM ; [facility] Previous live (s) 2 05/21/2023 Last Documented On 3 3:22PM ; [facility] Previous premature delivery(s) 0 023 Last Documented On 3 3:22PM ; [facility] Previous STD 05/21/2023 Last Documented On 3 3:22PM ; [facility] Sex of Child # 1: Fema 05/21/2023 Last Documented On 3 3:22PM ; [facility] Sex of Child # 2: Fem 05/21/2023 Last Documented On 3 3:22PM ; [facility] Sexually active 03/17/2020 Last Documented On 0 8:12AM ; [facility] Contraception: mirena 2-24-20 03/17/2020 Last Documented On 0 8:12AM ; [facility] History of hyperlipidemia 03/09/2019 Last Documented On 9 8:17AM ; [facility] 2 02/15/2015 Last Documented On 5 9:31AM ; [facility] Para 2 02/15/2015 Last Documented On 5 9:31AM ; [facility] History of depression H/O an xiety, used to take Celexa, no meds since finding out 01/14/2014 Last Documented On 4 9:38AM ; [facility] Family History Includes: Family History in patient's chart Description Last Updated Maternal history of colon cancer Aunt Last Documented On 3 3:22PM ; [facility] Maternal history of diabetes mellitus Mo ther, Grandma, and Aunts 05/21/2023 Last Documented On 3 3:22PM ; [facility] Maternal history of psychiatric disorder s 05/21/2023 Last Documented On 3 3:22PM ; [facility] Paternal history of cancer Father- Liver cancer 05/21/2023 Last Documented On 3 3:22PM ; [facility] Family history of diabetes mellitus mate rnal grandma 02/15/2015 Last Documented On 5 9:31AM ; [facility] Family history [use for free text] 04/09 Last Documented On 3 8:37AM ; [facility] Family history of heart disease father 0 12/31/2012 Last Documented On 3 3:38PM ; [facility] Family history of hypertension fathers s marcos 12/31/2012 Last Documented On 3 3:38PM ; [facility] Family history of malignant neoplasm of the large intestine MAT AUNT 08/28/2012 Last Documented On 2 2:30PM ; [facility] Review of Systems Review of Systems not supported for this document type No Review of Systems Recorded Mental Status No Mental Status Recorded Functional Status No Functional Status Recorded Physical Exam Physical Exam not supported for this document type No Physical Exam Recorded Immunizations Includes: Immunizations in patient's chart Vaccine Dose # Date Site Reaction(s) Status Source HPV, (quadrivalent) Gardasil 1 12/13/2010 Right Arm Complete (Administered) [facility] Last Documented On 1 1:38PM ; [facility] HPV, (quadrivalent) Gardasil 2 02/09/2011 Complete (Reported) Patient Last Documented On 1 11:36AM ; [facility] HPV, (quadrivalent) Gardasil 3 06/11/2011 Left Arm Complete (Administered) [facility] Last Documented On 1 11:04AM ; [facility] Allergies Includes: Active, inactive, and resolved Allergies Substance Type Reaction Onset Date Resolved Date Statu s Azithromycin Dihydrate Allergy 09/15/2012 Active Last Documented On 3 3:08PM ; [facility] Insurance Includes: Active Insurance Policies Plan Name Member ID Group # Subscriber Relationship Effect shabbir Dates 1 - [facility] [id number] LILIAN FONG Self Clinical Notes Includes: Signed Clinical Notes starting from 12/14/2022 No Clinical Notes Recorded
[2025-02-26 14:02] LABS: Basophils Absolute Auto 0.1 K/mm3 (0.0-0.1); Basophils Percent Auto 0.6 % (0.2-1.2); Eosinophils Absolute Auto 0.1 K/mm3 (0-0.3); Eosinophils Percent Auto 1.2 % (0-4.4); Hematocrit 42.5 % (37.0-47.0); Hemoglobin 13.8 g/dL (12.0-15.0); Immature Granulocyte Absolute 0.02 K/mm3 (0.00-0.031); Immature Granulocyte Percent A 0.2 % (0-0.5); Lymphocytes Absolute Auto 2.41 K/mm3 (0.9-3.2); Lymphocytes Percent Auto 28.6 % (18.3-44.2); Mean Corpuscular HGB Conc 32.5 g/dl (32-36); Mean Corpuscular Hemoglobin 29.6 pg (26-34); Mean Platelet Volume 9.5 fl (7.4-10.4); Monocytes Absolute Auto 0.5 K/mm3 (0.1-0.6); Monocytes Percent Auto 5.5 % (2.6-8.5); Neutrophils Absolute Auto 5.4 K/mm3 (1.3-6.7); Neutrophils Percent Auto 63.9 % (45.5-73.1); Platelet Count Result 387 k/mm3 (150-375); Red Blood Count 4.67 M/mm3 (4.2-5.4); Red Cell Distribution Width 13.2 % (11.5-14.5); White Blood Count 8.4 K/mm3 (4.5-10.0)
[2025-02-26 14:29] LABS: Hemoglobin A1C 6.4 % (<5.7)
[2025-02-26 14:37] LABS: Alanine Aminotransferase 36 U/L (6-35); Albumin Level 4.2 g/dL (3.5-5.1); Alkaline Phosphatase 101 U/L (38-126); Anion Gap 10 mmol/L (4-12); Aspartate Amino Transferase 63 U/L (14-36); Bilirubin,Total 0.4 mg/dL (0.2-1.3); Blood Urea Nitrogen 8 mg/dL (7-17); Carbon Dioxide 26 mmol/L (22-30); Chloride 103 mmol/L (98-107); Cholesterol 264 mg/dL (0-200); Estimated Glomerular Filt Rate > 60; Glucose 122 mg/dL (65-110); HDL Direct 42 mg/dL; Sodium 139 mmol/L (137-145); Triglycerides 112 mg/dL (<150)
[2025-02-26 14:48] LABS: LDL Cholesterol Direct 196 mg/dL
== END 2025-02-26 08:08 | disposition home or self-care (01) ==
LOC: ANHGOSHLAB 08:08
PROVIDERS: PCP Internal Medicine; Visit Provider Nurse Practitioner
DX: E78.5 Hyperlipidemia, unspecified (principal); R73.9 Hyperglycemia, unspecified; E66.01 Morbid (severe) obesity due to excess calories
CPT/HCPCS: 36415; 80053; 80061; 83036; 84443; 85025

== ENCOUNTER 2025-06-07 08:36 | Outpatient (CLI) | payer OTHER, SELFPAY ==
--- OUTSIDE RECORDS SUMMARY | 2025-06-07 08:44 | XMS_ITS | Clinical Summary ---
Author Organization [facility] Address [address] [facility] [place] [address] Phone Care Team Providers Care Control Systems Specialist Name Role Phone Randy Gary DPM Unavailable [phone] Geovanny Rincon MD Primary Care Provider [phone] Enzo Russell MD Unavailable Matt Valdes MD Unavailable Nila Francis APRN, SKIVER MACHINE Unavailable Mike Ha MD Unavailable Allergies Active Allergy Reactions Criticality Noted Date [...] 6:12 PM CDT Height 165.1 cm (5' 5) 06/22/2024 6:12 PM CDT Body Mass Index 47.26 06/22/2024 6:12 PM CDT Plan of Treatment Health Maintenance Due Date Last Done Comments Hepatitis C Virus (HCV) Screening 1987 HPV/Cotest 2017 Cervical Cancer Screening (CCS) 03/17/2023 Pap Smear 03/17/2023 03/17/2020 SARS-COV-2 Immunization ( season) 2024 12/12/2021, 03/13/2021, 02/13/2021 Influenza Immunization (#1) 2025 10/0 12/2022, 08/26/2023, 10/26/2022, Additional history exists DTaP/Tdap/Td Immunization (8 - Td or Tdap) 02/01/2028 01/31/2018, 12/12/2011, 07/21/2002, Additional history exists Respiratory Syncytial Virus (RSV) Immunization (Adult) (1 - 1-dose 75+ series) 2062 Hepatitis B Immunization Completed 998, 07/02/1997, 06/01/1997 Human Papillomavirus (HPV) Immunization Completed 06/11/2011, 02/09/2011, 12/13/2010 Meningococcal Immunization (ACWY) Aged Out No longer eligible based on patient's age to complete this topic Pneumococcal Immunization Combined Aged Out No longer eligible based on patient's age to complete this topic Rotavirus Immunization Aged Out No lo nger eligible based on patient's age to complete this topic Insurance [place] [id number] Care Teams Control Systems Specialist Relationship Specialty Start Date End Date Geovanny Rincon MD [address] [place] [address] PCP - General Internal Medicine 02/02/19 Randy Gary DPM Podiatry 02/28/16 Enzo Russell MD [address] [place] [address] Consulting Physician Pulmonary Disease 02/08/22 Matt Valdes MD [address] [phone] Consulting Physician Endocrinology 12/25/23 Nila Francis APRN, SKIVER MACHINE [address] [place] [address] Nurse Practitioner Advanced Practice Nurse 02/21/24 Mike Ha MD [address] [phone] Consulting Physician General Surgery 04/03/24
--- OUTSIDE RECORDS SUMMARY | 2025-06-07 08:44 | XMS_ITS | Encounter Summary ---
Author Organization [facility] Address [address] [facility] [place] [address] Phone Care Team Providers Care Assistant Account Executive Name Role Phone CookieRandy DPM Unavailable [phone] Geovanny Rincon MD Primary Care Provider [phone] Enzo Russell MD Unavailable Matt Valdes MD Unavailable Nila Francis APRN, CNP Unavailable Mike Ha MD Unavailable [phone] Encounter Details Date Type Department Care Team (Late st Contact Info) Description 12/01/[address] [facility] Preop/Pacu II [address] [place] [id number] Frank Warren MD [address] [place] [address] Pre-op testing (Primary Dx) Social History Tobacco [...] COVID-19? No / Unsure 12/04/2021 9:55 AM CANCER GENETICS ASSISTANT documented as of this encounter Plan of Treatment Not on file documented as of this encounter Results * SARS-COV-2 BY MOLECULAR (12/02/2021 1:40 PM CANCER GENETICS ASSISTANT) Pathologist [facility] SARSCOV2 NOT DETECTED (Referenc e Range for this test is Not Detected) [facility] ID NOW 12/02/2021 3:05 PM CANCER GENETICS ASSISTANT [facility] Comment:This test was perfor med by a MOLECULAR, NON-PCR method Other NASOPHARYNGEAL STRUCTURE / Unknown Non-Phlebotomy Collection / Unknown 12/02/2021 1:40 PM CANCER GENETICS ASSISTANT 12/02/2021 2:40 PM CANCER GENETICS ASSISTANT Narrative [facility] - 12/02/2021 3:05 PM CANCER GENETICS ASSISTANT This test has been authorized by the [...] information for Clinicians can be found at: https://www.fda.gov/media/689613/download Additional information for Patients can be found at: https://www.fda.gov/media/265533/download Frank Warren MD MICROBIOLOGY - GENERAL ORDERA BLES Final Result [facility] [address] [place] [address] * HEMOGLOBIN & HEMATOCRIT (H&H) (12/02/2021 1:40 PM CANCER GENETICS ASSISTANT) HEMOGLOBIN (HGB) 14.7 12.0 - 15.8 g/dL 12/02/2021 2:51 PM CANCER GENETICS ASSISTANT [facility] HEMATOCRIT (HCT) 45.0 36.0 - 47.0 % 12/02/2021 2:51 PM CANCER GENETICS ASSISTANT [facility] Blood Venipuncture / Unknown 12/02/2021 1:40 PM CANCER GENETICS ASSISTANT 12/02/2021 2:41 PM CANCER GENETICS ASSISTANT Frank Warren MD HEMATOLOGY ORDERABLES Final R esult [facility] [address] [place] [address] documented in this encounter Visit Diagnoses Diagnosis Pre-op testing- Primary Preoperative examination, unspecified documented in this encounter Care Teams Assistant Account Executive Relationship Specialty Start Date End Date Geovanny Rincon MD [address] [place], [place] [id number] PCP - General Internal Medicine 02/02/19 Randy Gary DPM Podiatry 02/28/16 Enzo Russell MD [address] [place] [phone] Consulting Physician Pulmonary Disease 02/08/22 Matt Valdes MD [address] [phone] Consulting Physician Endocrinology 12/25/23 Nila Francis APRN, [employer] [address] [place] [address] Nurse Practitioner Advanced Practice Nurse 02/21/24 Mike Ha MD [id number] [phone] Consulting Physician General Surgery 04/03/24 documented as of this encounter
[2025-06-07 17:37] LABS: Alanine Aminotransferase 42 U/L (6-35); Albumin Level 3.9 g/dL (3.5-5.1); Alkaline Phosphatase 106 U/L (38-126); Anion Gap 9 mmol/L (4-12); Aspartate Amino Transferase 32 U/L (14-36); Bilirubin,Total 0.3 mg/dL (0.2-1.3); Blood Urea Nitrogen 7 mg/dL (7-17); Calcium 8.9 mg/dL (8.4-10.2); Carbon Dioxide 23 mmol/L (22-30); Chloride 106 mmol/L (98-107); Cholesterol 193 mg/dL (0-200); Estimated Glomerular Filt Rate > 60; Glucose 135 mg/dL (65-110); HDL Direct 37 mg/dL; Potassium 4.2 mmol/L (3.4-5.0); Sodium 138 mmol/L (137-145); Total Protein 7.0 g/dL (6.3-8.2); Triglycerides 117 mg/dL (<150)
[2025-06-07 18:17] LABS: Hemoglobin A1C 6.1 % (<5.7)
== END 2025-06-07 08:37 | disposition home or self-care (01) ==
LOC: ANHGOSHLAB 08:37
PROVIDERS: PCP Nurse Practitioner; Visit Provider Nurse Practitioner
DX: E78.5 Hyperlipidemia, unspecified (principal); R73.03 Prediabetes
CPT/HCPCS: 36415; 80053; 80061; 83036

== ENCOUNTER 2025-10-20 10:57 | Outpatient (CLI) | payer OTHER, SELFPAY ==
[2025-10-20 13:03] LABS: Alanine Aminotransferase 34 U/L (6-35); Albumin Level 4.1 g/dL (3.5-5.1); Alkaline Phosphatase 108 U/L (38-126); Anion Gap 3 mmol/L (4-12); Aspartate Amino Transferase 35 U/L (14-36); Bilirubin,Total 0.4 mg/dL (0.2-1.3); Blood Urea Nitrogen 9 mg/dL (7-17); Calcium 9.0 mg/dL (8.4-10.2); Carbon Dioxide 26 mmol/L (22-30); Chloride 106 mmol/L (98-107); Estimated Glomerular Filt Rate > 60; Glucose 116 mg/dL (65-110); Potassium 4.2 mmol/L (3.4-5.0); Sodium 135 mmol/L (137-145); Total Protein 7.6 g/dL (6.3-8.2)
[2025-10-21 19:12] LABS: Hemoglobin A1C 6.1 % (<5.7)
== END 2025-10-20 10:58 | disposition home or self-care (01) ==
LOC: ANHGOSHLAB 10:58
PROVIDERS: PCP Clinical Nurse Specialist; Visit Provider Clinical Nurse Specialist
DX: R73.01 Impaired fasting glucose (principal)
CPT/HCPCS: 36415; 80053; 83036